=== PATIENT | male | born 1980 | race Caucasian/White ===

== ENCOUNTER 2024-08-22 14:17 | Observation (INO) | payer OTHER, SELFPAY ==
[2024-08-22] VITALS (11 sets, daily range): BP systolic 133–169; BP diastolic 89–108; BMI 26.4; BMI 25.1
[2024-08-22 12:07] LABS: Glucose - Point of Care 108 mg/dl (70-99)
[2024-08-22 12:10] LABS: % Basophils 0.6 % (0-2); % Eosinophils 1.8 % (0-6); % Immature Granulocytes 0.4 % (0-0.5); % Lymphocytes 27.7 % (20.5-51.1); % Monocytes 7.8 % (1.7-9.3); % Neutrophils 61.7 % (42.2-75.2); Absolute Eosinophils 0.1 10^3/uL (0-0.7); Absolute Lymphocytes 1.4 10^3/uL (1.2-3.4); Absolute Monocytes 0.4 10^3/uL (0.1-0.6); Absolute Neutrophils 3.1 10^3/uL (1.4-6.5); Hematocrit 42.9 % (39.0-52.0); Hemoglobin 14.8 g/dL (13.0-18.0); Mean Corp Hgb Conc. 34.5 g/dL (33.0-37.0); Mean Corpuscular Hgb 30.4 pg (27.0-31.0); Mean Corpuscular Volume 88.1 fL (80.0-94.0); Mean Platelet Volume 9.2 fL (7.4-10.4); Nucleated Red Blood Cells % 0 % (-); Platelet Count 141 10^3/uL (130-400); Red Blood Cell Count 4.87 10^6/uL (4.70-6.10); Red Cell Dist. Width 12.5 % (11.5-14.5)
--- NOTE | 2024-08-22 12:15 | CON.NEURO4 ---
Addendum entered and electronically signed by Bean Lopez MD 08/22/24 15:11:
Studies reviewed.
I have personally examined the patient. I reviewed and agree with the MARKETING COPYWRITER's Note.
My addenda:
Awake, alert, interactive. No acute distress.
Speech intact.
Follows 2-step requests w/o difficulty. No tremor.
Extra-ocular movements grossly intact.
Facial movements full and symmetric. Hearing intact to normal conversational volume.
Normal UE movements bilaterally.
Neck: full ROM.
Chest: no dyspnea
Heart: no JVD
Ext: (-) Clubbing, (-) Cyanosis, (-) Edema
IMPRESSIONS/RECOMMENDATIONS:
Abrupt onset of left hemibody sensory change concomitant chest pain
Differential diagnosis includes radiating pain from primary chest pain, as well as ischemic lesion into the right parietal lobe
Provide aspirin 81 mg and clopidogrel 75 mg without loading doses due to risk of ischemic lesion
Check MRI of brain to ensure no structural abnormality, consider repeated study with gadolinium
Check lipid profile, consider atorvastatin if LDL greater than 70
Consider cardiology consultation as the patient has been taking apixaban as needed according to an outside applications systems engineer
D/W patient
All questions answered.
Will continue to follow patient.
Original Note:
Documented by User: Claritza Starkey NP 08/22/24 14:39
Consultation - Neurology 4
-
CONSULTING PHYSICIAN: Bean Lopez MD
REFERRING PHYSICIAN: ER/Irving Moreno PA-C
DICTATED BY: JONATHAN Malagon
DATE/TIME OF REQUEST: 08/22/24
DATE/TIME OF CONSULTATION: 08/22/24
Reason for Consultation: Stroke Alert
History of Present Illness:
This is a 43-year-old right-handed male who has presented to the hospital with report of sudden onset chest discomfort, palpitations, left-sided sensation and weakness. Patient reports that he woke up in his usual state this morning. At
1030 he was at work when he suddenly developed left lateral chest discomfort, heart palpitations, left face followed by arm then leg decreased sensation, and then left arm and leg mild weakness with some LUE shakiness. EMS provided him with a dose
of aspirin en route. CT head and CTA head/neck were obtained on arrival and radiology is reading his CT head as a possible hyperintensity along the left insular cortex, ASPECT score 10. NIHSS is 1 for mild sensation change on the left side. His
left-sided weakness has resolved on arrival. He is not a candidate for TNK/IAT due to low NIHSS, no LVO. He denies any headache, dizziness, vision changes, speech/swallowing difficulty, and shortness of breath.
He reports having been diagnosed with paroxysmal Afib a couple of years ago. He does not have an ILR, but notes that he can feel when he is in Afib and has had several instances in the past 6 months. He is taking Eliquis PRN when he feels that he
is in Afib, his last dose was at least 3 weeks ago. He also notes that he has been seeing a neurologist for memory issues and was due to have an MRI brain and neuropsychological testing in the next several months; he cannot recall the name of his
Neurologist. He denies any history of migraines, stroke, or events like this in the past.
Past Medical History: Paroxysmal Afib (no ILR, take Eliquis when he feels that he is in Afib), HTN,
Surgical History: Sinus surgery, adenoidectomy
Family History: Unknown, adopted.
Social History: Couple of glasses of wine a few days per week. Rare cigar smoking. Denies illicit drug use.
Allergies: No known allergies
Home Medications: See below.
Review of Symptoms:
Patient denies any fever, headache, chest pain, shortness of breath, GI or symptoms.
�Per the HPI.�All systems are reviewed negative except above.
Physical Exam:
The patient is afebrile, abdomen is nondistended, breathing is unlabored, skin is warm and dry, no edema.
NIH Stroke Scale:
I performed the NIH stroke scale on the patient on 08/22/24 at 1245. The patient scored 1 points on the NIH stroke scale assessment, which were assigned as follows: See below.
Neurologic Examination:
The patient is awake, alert and oriented x 3. He is able to follow commands and answer questions appropriately. There is no aphasia or dysarthria. On cranial nerve assessment, pupils are 3 mm bilateral, round and reactive to light and
accommodation. Visual arechiga are full. Extraocular movements are intact. Facial sensations are intact and bilaterally symmetrical, there is no facial asymmetry. Hearing is intact bilaterally to normal conversation volume. Tongue palate and uvula are
midline. Sternocleidomastoid strengths are full bilaterally. Motor strengths are 5/5 bilateral upper and lower extremities on medical research Kotlik scale. There is no drift or involuntary movement noted. Babinski is absent bilaterally. Sensations
of touch are mildly decreased in the LUE and LLE. There was no extinction noted on double simultaneous stimulation. Coordination is intact by finger to nose bilaterally.
Lab Results: See below.
Neuro Imaging:
1. CT Head 08/22/24: Serpiginous hyperdensity along the left insular cortex which may represent acute thrombus. ASPECT score: 10.
2. CTA head/neck 08/22/24: No large vessel occlusions appreciated. No aneurysms or dissections.
Differentials for the patient's presentation include:
1. Small acute ischemic stroke possible given sudden onset of symptoms, lack of headache, and not consistently taking OAC.
2. Cardiac source of left-sided changes possible given chest pain although initial workup has been unrevealing for cardiac source.
3. HTN.
4. No history of migraines/aura.
Patient has the following risk factors for their symptoms: Afib (not consistent OAC), HTN
IV Tenecteplase/IAT candidacy: He is not a candidate for TNK/IAT due to low NIHSS, no LVO.
Recommendations:
-Provide clopidogrel 75mg x1 now.
-MRI brain without contrast pending. PRN Ativan on-call for MRI due to claustrophobia.
-Based on MRI results, based on MRI results, will decide about continuing DAPT vs OAC.
-Monitor on telemetry, TTE pending. Consider Cardiology consult.
-LDL goal will be <70 if MRI brain demonstrates a stroke. Lipid panel pending.
-Goal normoglycemia, hbA1c is pending.
-NIHSS and neurological checks per unit guidelines.
-Provide patient with a stroke education packet.
-PT/OT/ST evaluations.
-DVT prophylaxis.
-Will follow.
Discussed patient care with: Dr. Lopez, the patient
Vital Signs and Labs
-
Vital Signs and Labs:
Vital Signs
Temp Pulse Resp BP Pulse Ox
98.1 F 80 21 169/104 97
08/22/24 12:04 08/22/24 13:00 08/22/24 13:00 08/22/24 13:00 08/22/24 13:10
Lab Results
08/22/24 11:59
08/22/24 11:59
PT 12.7 Sec (11.4-14.6) 08/22/24 11:59
INR 0.90 08/22/24 11:59
APTT 23.2 Sec (23.4-35.0) L 08/22/24 11:59
Sodium 144 mmol/L (135-145) 08/22/24 11:59
Potassium 4.5 mmol/L (3.5-5.1) 08/22/24 11:59
BUN 16 mg/dl (9-20) 08/22/24 11:59
Glucose 107 mg/dl (70-99) H 08/22/24 11:59
Calcium 9.8 mg/dl (8.4-10.2) 08/22/24 11:59
Medications
-
Home Medications
�Medication �Instructions �Recorded
amlodipine 5 mg tablet 5 mg PO HS blood pressure 08/22/24
apixaban 5 mg tablet (Eliquis) 5 mg PO PRN PRN symptoms of AFib 08/22/24
metoprolol tartrate 25 mg tablet 25 mg PO PRN PRN symptoms of AFib 08/22/24
NIH Stroke Score
Subsequent NIH Scale
Date of Subsequent NIH Scale: 08/22/24
Time of Subsequent NIH Scale: 12:45
NIH Stroke Score
Level of Consciousness: 0 - Alert
LOC Questions: 0-Answers both correctly
LOC Commands: 0-Performs both correctly
Best Horizontal Gaze: 0-Normal
Visual Arechiga: 0=Normal, no visual loss
Facial Palsy: 0=Normal, symmetrical
Motor - Right Arm: 0=No drift 10 seconds
Motor - Left Arm: 0=No drift 10 seconds
Motor - Right Le-No drift 5 seconds
Motor - Left Le-No drift 5 seconds
Limb Ataxia: 0-Absent
Sensation: 1-Mild loss
Best Language: 0-No aphasia
Dysarthria: 0-Normal
Extinction and Inattention: 0-No abnormality
Total Score:: 1
Modified Elvira (mRS) Score
Modified Elvira Scale (mRS): No significant disability. Able to carry out usual activities.
Score: 1
Alteplase Contraindication
Inclusion and Exclusion criteria reviewed: Yes

Documented by User: Bean Lopez MD 08/22/24 15:02
NIH Stroke Score
NIH Stroke Score
Total Score:: 1
Modified Elvira (mRS) Score
Score: 1
--- NOTE | 2024-08-22 12:16 | ED.CVA ---
History of Present Illness
General
Chief Complaint: CVA/TIA Symptoms
Source: patient
Exam Limitations: none
Time Seen by Provider: 08/22/24 12:10
Nursing documentation reviewed up to this point in time: agreed with
Onset of Stroke Symptoms
Onset of symptoms known: Yes
Date of onset of symptoms: 08/22/24
Time of onset of symptoms: 10:30
Time pt last seen normal is known: No
History of Present Illness
History of Present Illness:
43-year-old male past ministry of paroxysmal A-fib takes anticoagulant as needed presenting to the emergency department 1-1/2 hours after abrupt onset of left-sided weakness to the left arm and progressing to the left leg within a few minutes also
at the left neck and face. This then started progressing into some weakness to the left side description of difficulty speaking no changes in vision no changes in coordination. Denies similar symptoms in the past. Had an episode en route to the
ER where he felt shaky and felt palpitations for a few minutes that is since resolved. The weakness has been improving over the last half hour or so, the paresthesias to the left side improving as well. Still present. Denies any chest pain
shortness of breath currently
Past History
Past History
ED Past Medical History: None and Other (adopted)
ED Past Surgical History: None
Social History
Tobacco: Non-smoker
Alcohol: Occasional
Drug: None
Personal:
Living: with family
Review of Systems
Review of Systems
Allergies reviewed?: Yes
All Other Systems: ROS reviewed and negative except as documented in HPI and ROS
Phy Exam
Physical Exam
Physical Exam:
GENERAL: Alert , in no apparent distress
EYE: pupils equal and reactive
NECK: Supple, no significant adenopathy.
ENT: o/p clr, mmm.
CARDIAC: Regular rate and rhythm .
LUNGS: Clear breath sounds bilaterally, no acute respiratory distress, no wheezes/rales/rhonchi
ABDOMEN: Soft, without focal tenderness, no r/g, no cvat
NEUROLOGICAL: Alert and oriented, decree sensation to the left arm and left leg compared to the subjectively on examination. No obvious motor deficit or strength deficit to the extremities bilaterally. Normal finger-nose no significant pronator
drift. Normal cranial nerve examination.
SKIN: Warm and dry, skin intact.
MUSCULOSKELETAL: No edema, well perfused.
PSYCH: Normal and appropriate interaction.
Course
Orders/Labs/Results
Orders:
Orders
08/22/24 11:56
Electrocardiogram (*1) Urgent
Reason for Study: Other
Other Reason for Exam: Possible Stroke
Bedside Glucose- Treatment ONCE
Cardiac Monitoring- Treatment ONCE
IV Insert/Care/Rem.- Treatment PRN
Vital Signs As Directed
Frequency: Other
Weight As Directed
Frequency: Once
Comment: ZERO STRETCHER SCALE FOR ACCURATE WEIGHT
O2 Therapy [RESP] Urgent
Titrate/Wean O2 to maintain O2 sat greater than (%): 93
Special Instructions: MAINTAIN CONTINUOUS O2 SATS > OR = 93%
08/22/24 11:57
EKG- Treatment ONCE
08/22/24 11:59
Complete Blood Count/With Diff Urgent
Comprehensive Metabolic Panel Urgent
PTT Urgent
Prothrombin Time Urgent
Troponin I Urgent
08/22/24 12:09
CT HEAD STROKE ALERT W/o Cont Stat
Comment:
Reason For Exam: stroke alert
08/22/24 12:12
CT HEAD/NECK ANG STROKE ALERT Urgent
Reason For Exam: left sided numb weak
Abnormal Lab Results
08/22/24 08/22/24
11:59 12:06
APTT 23.2 L Sec
(23.4-35.0)
Glucose 107 H mg/dl
(70-99)
ALT 71 H U/L
(0-50)
Total Protein 8.5 H g/dl
(6.3-8.2)
Albumin 5.5 H g/dl
(3.5-5.0)
POC Glucose 108 H mg/dl
(70-99)
08/22/24 11:59
08/22/24 11:59
Vital Signs
Initial and Last Documented VS:
Initial Vital Signs
BP
153/100
08/22/24 12:00
Last Documented Vital Signs
Temp Pulse Resp BP Pulse Ox
98.1 F 80 21 169/104 97
08/22/24 12:04 08/22/24 13:00 08/22/24 13:00 08/22/24 13:00 08/22/24 13:10
MDM/Problems Addressed
MDM/Problems Addressed:
43-year-old male presenting to the emergency department today with concerns of decree sensation to the left side mainly to the left arm slightly to the left leg. Of time to the left face and left neck that is since resolved. Also had some weakness
to the left side as well that is since resolved. Arrival here blood pressure slightly elevated otherwise vital signs are normal. Patient does have reproducible decree sensation to the left side subjectively no objective strength deficit. He
claims that he has had some ongoing left-sided chest discomfort. Did have an aspirin en route. Initial EKG without signs of ischemia and initial troponin negative. Patient here had CT angiogram as well as CT without emergent findings. Symptoms
gradually improving to his left side. Patient was seen by neurology that recommended getting an MRI. Patient will be admitted for further testing.
*Critical Care Note
Total Time (30-74mins, 75-104mins- exclusive of procedures): Not Applicable
ED Attending Note
-
Portions of this chart may have been created with voice recognition software.� Occasional wrong word or��sound alike� substitutions may have occurred due to the inherent limitations of voice recognition software.
Discharge Plan
Departure
Patient Disposition: Admit
Date of Disposition: 08/22/24
Time of Disposition: 13:19
Admit to: Telemetry
Admit to doctor: Nat
Presentation/result/management discussed w/ accepting MD/DO: Hospitalist
Patient with high blood pressure during this ER visit?: No
Condition: Good
Covid-19: Not Applicable
Discharge Problem:
Paresthesia of left arm, Chest pain
Prescriptions:
No Action
amlodipine 5 mg tablet
5 mg PO HS
metoprolol tartrate 25 mg tablet
25 mg PO PRN PRN (Reason: symptoms of AFib)
Eliquis 5 mg tablet
5 mg PO PRN PRN (Reason: symptoms of AFib)
Referrals:
Nathaniel Eid MD [Family Provider] -
Interventions
Interventions:
*Risk Screen - Suicide Last Done: 08/22/24 13:16
*General Assessment Last Done: 08/22/24 12:04
*Neglect/Abuse Screening Last Done: 08/22/24 13:16
ED- Fall Risk Assessment Last Done: 08/22/24 13:10
*ED COVID-19 Vaccine History Last Done: 08/22/24 13:10
ED- Pulmonary Assessment Last Done: 08/22/24 13:10
ED- Neurological Assessment Last Done: 08/22/24 12:26
ED- Cardiac Assessment Last Done: 08/22/24 12:26
ED Swallowing Screen Last Done: 08/22/24 13:10
Discharge Date and Time
Print Language: MEXICAN
[2024-08-22 12:23] LABS: PT 12.7 Sec (11.4-14.6)
[2024-08-22 12:25] LABS: ALT (SGPT) 71 U/L (0-50); AST (SGOT) 42 U/L (17-59); Albumin 5.5 g/dl (3.5-5.0); Alkaline Phosphatase 57 U/L (38-126); Blood Urea Nitrogen 16 mg/dl (9-20); Calcium 9.8 mg/dl (8.4-10.2); Carbon Dioxide 27 mmol/L (22-30); Chloride 103 mmol/L (98-107); Estimated Creatinine Clearance > 125 ml/min; Glucose 107 mg/dl (70-99); Potassium 4.5 mmol/L (3.5-5.1); Sodium 144 mmol/L (135-145); Total Bilirubin 0.5 mg/dl (0.2-1.3); Total Protein 8.5 g/dl (6.3-8.2); eGFR > 60.00
--- NOTE | 2024-08-22 12:29 | ED TECH ---
A STROKE ALERT was called#[id number]# @12:07 PM Per .Cat Scan Notified.
[2024-08-22 12:35] LABS: Troponin I < 0.012 ng/ml
[2024-08-22 12:39] LABS: APTT 23.2 Sec (23.4-35.0)
--- NOTE | 2024-08-22 13:18 | HPS.HSE ---
Family Physician
-
Family Physician: Nathaniel Eid
Chief Complaint
-
left sided chest pain
left sided numbness and weakness
History of Present Illness
43-year-old male past ministry of paroxysmal A-fib takes anticoagulant, HTN as needed presenting to the emergency department with two weeks of intermitted non radiating, non exertional left sided chest pain. today he noticed left arm numbness
radiating to his leg then to his face. still with left arm numbness and chest pain. denied SIMEON, dizzy or blurry vision. stated palpitation and shakiness Enroute to the hospital . patient received a dose of aspirin. denied fever, chills, runny nose
congestion and cough. denied abdominal pain,n,v,d. denied dysuria or hematuria.
CT with Serpiginous hyperdensity along the left insular cortex which may represent acute thrombus.
admitting for further management.
Medical History
Past Medical History
Past Medical History: Reports Other
Additional Past Medical History:
htn
pAF
Past Surgical History: Reports Other
Additional Past Surgical History:
sinus surgery
adenoidectomy
Social History
Tobacco: Non-smoker
Alcohol: Occasional
Drug: None
Personal:
Living: With Family
Employment: Employed
Family History
Family History: Not pertinent
Allergies / Home Medications
Allergies reflects when Allergies were last updated in [facility].
Home Medications with original date entered in [facility]
Allergy/Medication List:
Allergies
Allergy/AdvReac Type Severity Reaction Status Date / Time
No Known Allergies Allergy Verified 08/04/22 10:19
Home Medications
amlodipine 5 mg tablet 5 mg PO HS blood pressure 08/22/24
apixaban 5 mg tablet (Eliquis) 5 mg PO PRN PRN symptoms of AFib 08/22/24
metoprolol tartrate 25 mg tablet 25 mg PO PRN PRN symptoms of AFib 08/22/24
Review of Systems
-
Constitutional: Reports No Symptoms
EENT: Reports No Symptoms
Respiratory: Reports No Symptoms
Cardiac: Reports Chest Pain and Palpitations
Abdomen/GI: Reports No Symptoms
: Reports No Symptoms
Musculoskeletal: Reports No Symptoms
Skin: Reports No Symptoms
Neurological: Reports Weakness and Numbness
Endocrine: Reports No Symptoms
Hematologic/Lymphatic: Reports No Symptoms
Psych: Reports No Symptoms
Physical Exam
Vital Signs
Vital Signs
Temp Pulse Resp BP Pulse Ox
98.1 F 80 21 169/104 97
08/22/24 12:04 08/22/24 13:00 08/22/24 13:00 08/22/24 13:00 08/22/24 13:10
Physical Exam
General: Well Developed, Well Nourished and No Apparent Distress
HEENT: NormoCephalic, Moist mucous membranes and Atraumatic
Respiratory: Clear
Cardiac: S1/S2 and Regular Rhythm; No Murmur or Rub
GI: Soft, Non Tender, Non Distended and Normal Bowel Sounds; No Organomegaly
Rectal: Deferred by Provider
Musculoskeletal: No Clubbing, No Cyanosis and No Edema
Skin: No Rash
Neuro: AO x 3 and Nonfocal/grossly intact
Psych: Calm
Laboratory Results
-
08/22/24 11:59
08/22/24 11:59
Laboratory Results
PT 12.7 Sec (11.4-14.6) 08/22/24 11:59
INR 0.90 08/22/24 11:59
APTT 23.2 Sec (23.4-35.0) L 08/22/24 11:59
Total Bilirubin 0.5 mg/dl (0.2-1.3) 08/22/24 11:59
AST 42 U/L (17-59) 08/22/24 11:59
ALT 71 U/L (0-50) H 08/22/24 11:59
Alkaline Phosphatase 57 U/L (38-126) 08/22/24 11:59
Troponin I < 0.012 ng/ml 08/22/24 11:59
Data Reviewed
-
CT Scan: Report Reviewed by me
Lab Data: Labs Reviewed by me
Impression/Plan
-
#left sided numbness/weakness r/o acute CVA
-CTA negative
-CT Serpiginous hyperdensity along the left insular cortex which may represent acute thrombus.
-obtain MRI
-aspirin and statin continued
-obtain A!c, lipid profile
-neurology consulted
#left sided chest pain unclear cause
-trop negative
-continue to trend trop
-Tylenol prn for pain
-ctm
#PAF
-EKG with NSR
-eliquis and metoprolol continued
#hypertension urgency
-BP elevated in ER
-Norvasc continued
#DVT prophylaxis
-eliquis
#CODE status
-full code
--- NOTE | 2024-08-22 14:24 | W.PN.UPDATE ---
Update Note
Progress Note Update
This note serves as an addendum to the H&P by breaker boss ADAM Shena BENAVIDES
HPI
43M HX paroxysmal A-fib takes anticoagulant, HTN seeen at ER
- reports two weeks of intermitted non radiating, non exertional left sided chest pain
- today he noticed left arm numbness radiating to his leg then to his face. still with left arm numbness and chest pain. - received dose of ASA
- stated palpitation and shakiness Enroute to the hospital
HCT Serpiginous hyperdensity along the left insular cortex which may represent acute thrombus but NEG CTA H & N
ROS:
denied SIMEON, dizzy or blurry vision
denied fever, chills, runny nose congestion and cough. denied abdominal pain,n,v,d. denied dysuria or hematuria.
Reviewed VS:
Vital Signs
Temp Pulse Resp BP Pulse Ox
98.1 F 80 21 169/104 97
08/22/24 12:04 08/22/24 13:00 08/22/24 13:00 08/22/24 13:00 08/22/24 13:10
PE:
GEN: No Apparent Distress
HEENT: Moist mucous membranes and Atraumatic
Respiratory: CTA
Cardiac: S1/S2 and Regular Rhythm
GI: Soft, Non Tender, Non Distended and Normal Bowel Sounds
Rectal: Deferred by Provider
Musculoskeletal: No Edema
Skin: No Rash
Neuro: AO x 3 and Nonfocal/grossly intact
Psych: Calm
Abnormal Lab Results
08/22/24 08/22/24
11:59 12:06
APTT 23.2 L
Glucose 107 H
ALT 71 H
Total Protein 8.5 H
Albumin 5.5 H
POC Glucose 108 H
NEG H& N
HCT: Serpiginous hyperdensity along the left insular cortex which may represent acute thrombus.
ASSESSMENT & PLAN
Acute left face,, Lt UEx, Lt Paloma paraesthesia: NIH was Zero upon arrival
- NEG CTA H & N
- HCT : Serpiginous hyperdensity along the left insular cortex which may represent acute thrombus.
- Initiated ASA and Statin upon admission
- on GRAPHOTYPE OPERATOR Eliquis for Prx AF
- obtain A!c, lipid profile
- ECHO
- Brain MRI
- Neuro consulted
Subacute eft sided chest pain unclear cause
Known to [facility]
- NEG TPN - trending TPNI
- If TPN becomes POS to consider CBC Card
- Tylenol prn for pain
in NSR
HX PAP
- c/w GRAPHOTYPE OPERATOR Eliquis and metoprolol continued
HTN Urgency
- Norvasc continued
DVT Px: Eliquis
Full code
Obs TLM
--- NOTE | 2024-08-22 14:50 | EDRN ---
NIHS scale reviewed with RYLAN Gallo on the 3rd floor. Patient continues with numbness in his left arm only. Left leg numbness has resolved. Continues with c/o left sided chest pain.
[2024-08-22] MEDS: PLAVIX 75 MG PO (15:18)
--- NOTE | 2024-08-22 15:39 | PTOTSP ---
Dysphagia Evaluation
Oral and pharyngeal swallowing suspected to be grossly WFL based on clinical bedside swallowing evaluation.
Recommend:
1. Regular, Thin Liquids
2. Medications - as best tolerated
3. No further dysphagia therapy warranted
No obvious aphasia or dysarthria observed. Per chart review, patient with memory concerns prior to admission and scheduled for outpatient neuropsychology assessment. Will assess speech/language/cognitive linguistic skills pending results of MRI of
Brain.
[2024-08-22 15:45] LABS: Erythrocyte Sed Rate 11 mm/hour (0-20)
[2024-08-22 16:03] LABS: C-Reactive Protein < 5.00 mg/L (0.0-10.00)
[2024-08-22] MEDS: ATIVAN 1 MG PO (16:10)
[2024-08-22 16:35] LABS: TSH Reflex To Free T4 0.86 uIU/ml (0.47-4.68)
[2024-08-22] MEDS: LIPITOR 40 MG PO (17:03)
[2024-08-22 17:11] LABS: Folate > 20.0 ng/ml (2.76-20); Vitamin B12 665 pg/ml (239-931)
[2024-08-22 17:42] LABS: Troponin I < 0.012 ng/ml
--- NOTE | 2024-08-22 18:29 | W.PN.UPDATE ---
Update Note
Progress Note Update
patient was noted to have unwitnessed GI bleed. he is on Eliquis also on asa and Plavix. hold Eliquis, asa, and Plavix. trend hgb. IV PPI. GI consulted
[2024-08-22] MEDS: NSS (PRESERVATIVE FREE) 10 ML IV (18:43)
[2024-08-22] MEDS: PROTONIX IV 40 MG IV (18:44)
[2024-08-22 19:09] LABS: Hemoglobin 13.8 g/dL (13.0-18.0)
[2024-08-22] MEDS: TYLENOL 650 MG PO (20:23)
[2024-08-22 20:53] LABS: Troponin I < 0.012 ng/ml
[2024-08-22] MEDS: NORVASC 5 MG PO (21:00)
[2024-08-22 23:54] LABS: Troponin I < 0.012 ng/ml
[2024-08-23 03:15] VITALS: BP 128/89
[2024-08-23 06:00] VITALS: BMI 25.1
[2024-08-23 06:30] LABS: Hematocrit 38.7 % (39.0-52.0); Hemoglobin 13.5 g/dL (13.0-18.0); Mean Corp Hgb Conc. 34.9 g/dL (33.0-37.0); Mean Corpuscular Hgb 30.2 pg (27.0-31.0); Mean Corpuscular Volume 86.6 fL (80.0-94.0); Mean Platelet Volume 9.3 fL (7.4-10.4); Platelet Count 140 10^3/uL (130-400); Red Blood Cell Count 4.47 10^6/uL (4.70-6.10); Red Cell Dist. Width 12.2 % (11.5-14.5); White Blood Cell Count 5.4 10^3/uL (4.8-10.8)
[2024-08-23 07:02] LABS: Blood Urea Nitrogen 20 mg/dl (9-20); Calcium 9.1 mg/dl (8.4-10.2); Carbon Dioxide 24 mmol/L (22-30); Chloride 104 mmol/L (98-107); Estimated Creatinine Clearance 124 ml/min; Glucose 107 mg/dl (70-99); HDL Cholesterol 37 mg/dl; LDL Cholesterol, Calculated 125 mg/dl; Potassium 3.9 mmol/L (3.5-5.1); Sodium 141 mmol/L (135-145); Total Cholesterol 202 mg/dl (50-199); Triglyceride 204 mg/dl (10-149); Very Low Density Lipoprotein 40 mg/dl (0-30); eGFR > 60.00
--- NOTE | 2024-08-23 07:12 | CON.GI ---
Addendum entered and electronically signed by Aracely Nelson DO 08/23/24 11:19:
I saw and examined the patient.
The FOUR SLIDE MACHINE SETTER or PA's note was reviewed and I agree with the note.
Comment:
Briefly, 43 y.o. male with pmhx pAF on prn AC and BB and HTN admitted with left arm numbness and chest discomfort with reported 1 episode of unwitnessed bright red blood per rectum. Hgb stable. Has never had an episode like this in the past. He is
adopted, does not know family history. No change in bowels or unintentional weight loss. He does admit to some dysphagia.
Rectal exam with heme neg, brown stool. Suspect bleeding episode was hemorrhoidal in nature.
Recommend outpatient follow-up with GI in our office at which point we can address both is dysphagia and this episode of bleeding. c/w PPI. GI will sign off, please call with questions.
Original Note:
Consultation
-
Date/Time Consultation Requested: 08/22/24 1830
Date/Time Consultation Performed: 08/23/24 0715
Requesting Provider: JONATHAN Tamayo
Performing Provider: JONATHAN Ponce Jen Schwartz, DO
Reason for Consultation: GI bleed
Medical History
Chief Complaint / HPI
Chief Complaint: GI bleed
History of Present Illness:
Pt is a 43yo presents with hx PAF on anticoagulation PRN with symptoms , HTN presents to ER 08/22 with chest pain along with recent numbness radiating to leg and face. Imaging on admission with HCT noted with serpiginous hypodensity along left
insular cortex may be acute thrombus. Follow up MRI neg. EKG with normal rhythm borderline left atrial enlargement and troponin neg. Follow up echo with normal LV size and function EF 55 %. Pt admits after admission he passed red blood with
noted formed stool and red blood around stool. Pt denies hx bleeding in past. He also admits to feeling of dysphagia in mid upper esophagus with ground meat occasionally over last year. On admission labs with normal hbg, LFT's normal with minimal
elevated ALT. No hx EGD or colonoscopy in past.
At this time still with some chest pain and numbness. He otherwise denies odynophagia, GERD, nausea, vomiting, abdominal pain, diarrhea, constipation or black stools. No NSAID use.
Past Medical History
Past Medical History: Arrhythmias (PAF) and HTN
Past Surgical History: Other (sinus surgery, adenoidectomy)
Social History
Tobacco: Non-Smoker
Alcohol: Occasional ( 3 glasses of wine 3 times per week)
Drug: None
Personal:
Living: With Family
Employment: Employed
Family History
Family History: Adopted
Allergies / Home Medications
Allergy/AdvReac Type Severity Reaction Status Date / Time
No Known Allergies Allergy Verified 08/04/22 10:19
�Medication �Instructions �Recorded
amlodipine 5 mg tablet 5 mg PO HS blood pressure 08/22/24
apixaban 5 mg tablet (Eliquis) 5 mg PO PRN PRN symptoms of AFib 08/22/24
metoprolol tartrate 25 mg tablet 25 mg PO PRN PRN symptoms of AFib 08/22/24
Review of Systems
-
History Source: Patient
Constitutional: Reports Weight Loss ( 5 lbs )
EENT: Reports No Symptoms
Respiratory: Reports Trouble Breathing
Cardiac: Reports Chest Pain
Abdomen/GI: Reports Bloody Stools and Other (dysphagia )
: Reports No Symptoms
Musculoskeletal: Reports No Symptoms
Skin: Reports No Symptoms
Neurological: Reports Weakness
Endocrine: Reports No Symptoms
Hematologic/Lymphatic: Reports Bleeding
Vital Signs
Temp Pulse Resp BP Pulse Ox
98.1 F 72 18 128/89 98
08/23/24 03:15 08/23/24 03:15 08/23/24 03:15 08/23/24 03:15 08/23/24 03:15
Physical Exam
Exam
General: Well Developed, Well Nourished and No Apparent Distress
HEENT: Normocephalic and Anicteric
Respiratory: Clear
Cardiac: Regular Rhythm
GI: Soft, Non Tender and Non Distended
Rectal: Brown, Hem Negative and Hemorrhoids
Musculoskeletal: No Clubbing and No Cyanosis
Skin: Warm and Dry
Neuro: Awake, Alert and AO x 3
Psych: Calm
Results
WBC 5.4 10^3/uL (4.8-10.8) 08/23/24 05:20
Hgb Cancelled 08/23/24 06:26
Hct 38.7 % (39.0-52.0) L 08/23/24 05:20
MCV 86.6 fL (80.0-94.0) 08/23/24 05:20
Plt Count 140 10^3/uL (130-400) 08/23/24 05:20
Absolute Neuts (auto) 3.1 10^3/uL (1.4-6.5) 08/22/24 11:59
PT 12.7 Sec (11.4-14.6) 08/22/24 11:59
INR 0.90 08/22/24 11:59
APTT 23.2 Sec (23.4-35.0) L 08/22/24 11:59
Sodium 141 mmol/L (135-145) 08/23/24 05:20
Potassium 3.9 mmol/L (3.5-5.1) 08/23/24 05:20
Chloride 104 mmol/L (98-107) 08/23/24 05:20
Carbon Dioxide 24 mmol/L (22-30) 08/23/24 05:20
BUN 20 mg/dl (9-20) 08/23/24 05:20
Creatinine 0.9 mg/dL (0.7-1.3) 08/23/24 05:20
Calcium 9.1 mg/dl (8.4-10.2) 08/23/24 05:20
Total Bilirubin 0.5 mg/dl (0.2-1.3) 08/22/24 11:59
AST 42 U/L (17-59) 08/22/24 11:59
ALT 71 U/L (0-50) H 08/22/24 11:59
Alkaline Phosphatase 57 U/L (38-126) 08/22/24 11:59
Diagnostic Image Results:
08/22/24 CT HEAD STROKE ALERT W/o Cont
Serpiginous hyperdensity along the left insular cortex which may represent acute thrombus.
08/22/24 CT HEAD/NECK ANG STROKE ALERT
1. No large vessel occlusions appreciated. No aneurysms or dissections.
2. Additional findings above.
08/22/24- MR brain
No MRI evidence for an acute infarct.
Prior GI Procedures:
EGD: none
Colonoscopy: none
Assessment / Plan
-
Pt is a 43yo presents with hx PAF on anticoagulation PRN with symptoms , HTN presents to ER 08/22 with chest pain along with recent numbness radiating to leg and face. Imaging on admission with HCT noted with serpiginous hypodensity along left
insular cortex may be acute thrombus. Follow up MRI neg. EKG with normal rhythm borderline left atrial enlargement and troponin neg. Follow up echo with normal LV size and function EF 55 %. Pt admits after admission he passed red blood with
noted formed stool and red blood around stool. Pt denies hx bleeding in past. He also admits to feeling of dysphagia in mid upper esophagus with ground meat occasionally over last year. On admission labs with normal hbg, LFT's normal with minimal
elevated ALT. No hx EGD or colonoscopy in past.
-rectal bleeding
-dysphagia
-chest pain
-numbness
-CT serpiginous hypodensity along left insular cortex may be acute thrombus
-minimal ALT elevation
-ETOH use (3 glasses wine 3 days per week)
other med problems:
-afib with PRN Eliquis use
-HTN
-hx adenoid resection
PLAN:
etiology of Bleeding related to hemorrhoids with normal hbg and brown heme neg stool on rectal exam vs other
dysphagia may be related to schatzki's ring, dysmotility vs other
pt current admit to chest pain and numbness
discussed OP follow up to review for EGD vs UGI/colon when improved from chest pain and numbness issues to rule out any other source for bleeding and work up new dysphagia
discussed care with hemorrhoids ( no prolonged sitting on toilet, add fiber to diet, sitz bath, hemorrhoids cream PRN)
trend hbg and stool record
Eliquis and ASA on hold-- ok to resume if needed
limit ETOH use
cont Protonix daily with dysphagia
ok for diet from GI standpoint
-
-
Thank you for consultation and allowing me to participate in the patient's care. Please call the investor relations director GI physician during the after hours with any questions or concerns.
[2024-08-23 07:33] VITALS: BP 137/94
[2024-08-23] MEDS: PROTONIX IV 40 MG IV (08:06)
[2024-08-23] MEDS: NSS (PRESERVATIVE FREE) 10 ML IV (08:07)
--- NOTE | 2024-08-23 09:11 | W.PN.NEURO.1 ---
Today's Communication / Plan
-
Consider cardiology evaluation due to atypical chest pain
No indication from neurological perspective for the use of antiplatelet agents at this time
Consideration for anxiolytics must be given based on next objective results
Neuro Assessment/Plan
Assessment
Abrupt onset of left hemibody sensory change concomitant chest pain
Differential diagnosis includes radiating pain from primary chest pain
There is no evidence of an ischemic lesion by MRI of brain
Plan
Consider cardiology evaluation due to atypical chest pain
No indication from neurological perspective for the use of antiplatelet agents at this time
Consideration for anxiolytics must be given based on next objective results
We will follow as needed
Subjective/Objective
Subjective Data
Date of Service: August 23, 2024
Numbness and tingling resolved ~ 2 hours, although continued chest discomfort.
Objective Data
Vital Signs
Temp Pulse Resp BP Pulse Ox
36.7 C 78 17 137/94 98
08/23/24 07:33 08/23/24 07:33 08/23/24 07:33 08/23/24 07:33 08/23/24 07:33
Lab Results
08/23/24 06:26
08/23/24 05:20
PT 12.7 Sec (11.4-14.6) 08/22/24 11:59
INR 0.90 08/22/24 11:59
APTT 23.2 Sec (23.4-35.0) L 08/22/24 11:59
Sodium 141 mmol/L (135-145) 08/23/24 05:20
Potassium 3.9 mmol/L (3.5-5.1) 08/23/24 05:20
BUN 20 mg/dl (9-20) 08/23/24 05:20
Glucose 107 mg/dl (70-99) H 08/23/24 05:20
Calcium 9.1 mg/dl (8.4-10.2) 08/23/24 05:20
LDL Cholesterol, Calc 125 mg/dl 08/23/24 05:20
Vitamin B12 665 pg/ml (558-791) 08/22/24 11:59
Patient Allergies
No Known Allergies Allergy (Verified 08/04/22 10:19)
Review of Systems
-
History Source: Patient
All other systems: Reviewed and negative
Physical Exam
-
General: No Apparent Distress and Appears Stated Age
Eyes: Round OU, Silver Firs Conjunctivae and No Ptosis
HEENT: Anicteric and Moist Mucous Membranes
Neck: Full Range of Motion
Respiratory: No Dyspnea
Cardiac: No JVD
GI: Non-distended
Skin: Unremarkable
Extremities: No Clubbing, No Cyanosis and No Edema
Psych: Intact Judgement/Insight
Extended Neurological Exam
Mood & Affect: Mood Unremarkable and Affect Unremarkable
Attention Span & Concentration: Awake, Alert, Interactive and No Difficulty with 2 Step Request
Memory: Unremarkable
Tremor: Hand Tremor Absent and Head Tremor Absent
Speech: Quality Unremarkable and Quantity Unremarkable
Cranial Nerve II: Left Eye: Pupillary Size Unremarkable and Visual Arechiga Grossly Intact
Cranial Nerve II: Right Eye: Pupillary Size Unremarkable and Visual Arechiga Grossly Intact
Cranial Nerves III, IV, : Extraocular Movement: Grossly Intact
Cranial Nerve VII: Facial Symmetry: Normal Facial Symmetry
Cranial Nerve VIII: Hearing: Unremarkable Hearing to Normal Conversational Volume
Cranial Nerve XI: Shoulder Shrug: Unremarkable
Muscle Strength, Overall: Spontaneously Moves
Muscle Bulk & Tone: Bulk Unremarkable and Tone Unremarkable
Touch Sensation: Unremarkable
Coordination: Reaches for Objects without Difficulty
Data Reviewed
-
MRI Head: Report Reviewed and Image Reviewed
Labs: Report Reviewed
Reviewed with: Physician, Patient and Family
Old Records: Summarized
--- NOTE | 2024-08-23 09:19 | CON.CAR ---
Addendum entered and electronically signed by Warner Acevedo MD 08/23/24 13:03:
I saw and examined the patient.
The HIGH SCHOOL ENGLISH TEACHER's note was reviewed and I agree with the note.
Comment: 43-year-old male (known to his primary field inspector, Dr. João Barbosa at [facility]) with hypertension and paroxysmal atrial fibrillation presented to the emergency department with left-sided chest pain. His story is unclear and it is not 100%
clear that he has a cardiac etiology for his symptoms. However, he does have some symptoms that go along with pericarditis and we will treat as such. Additionally, some of these symptoms could be explained by costochondritis?
- Colchicine 3 months
- Ibuprofen taper as outlined with PPI for gi protection
- follow up with outpatient field inspector
- switch amlodipine to nifedipine
Original Note:
Consultation
Consultation Request
Date/Time Consultation Requested: 08/23/2024 09:15
Date/Time Consultation Performed: 08/23/2024 09:20
Requesting Provider: Musa Chavez MD
Performing Provider: JONATHAN Reza for Dr. Corbett
Reason for Consultation: Chest pain, Eliquis recommendation
Medical History
-
Chief Complaint: Chest pain
History of Present Illness:
Regino Collins is a 43-year-old male (known to his primary field inspector, Dr. João Barbosa at [facility]) with hypertension and paroxysmal atrial fibrillation presented to the emergency department with left-sided chest pain. He called his field inspector and
he was told to have someone drive him to the emergency department. While en route, he had left sided numbness and weakness. His left-sided chest pain went into his neck. He reports his left arm started shaking. He then had the sudden onset of
palpitations. He then arrived via EMS. He was evaluated by neurology. MRI unremarkable. His chest pain has been constant and nonexertional for more than 14 days. He is still having chest pain at the present moment. It does not get worse with
exertional activities. It does get worse with deep breath. It does not change with changes in position.
Past Medical History
Past Medical History: Arrhythmias (Paroxysmal atrial fibrillation) and HTN
Past Surgical History: Other (Adenoidectomy, sinus surgery)
Social History
Alcohol: Occasional
Drug: None
Employment: Employed
Family History
Family History: Adopted
Allergies / Home Medications
Allergy/AdvReac Type Severity Reaction Status Date / Time
No Known Allergies Allergy Verified 08/04/22 10:19
�Medication �Instructions �Recorded �Confirmed �Type
amlodipine 5 mg tablet 5 mg PO HS blood pressure 08/22/24 08/22/24 History
apixaban 5 mg tablet (Eliquis) 5 mg PO PRN PRN symptoms of AFib 08/22/24 08/22/24 History
metoprolol tartrate 25 mg tablet 25 mg PO PRN PRN symptoms of AFib 08/22/24 08/22/24 History
Review of Systems
-
History Source: Patient
All other systems: Negative unless noted
Constitutional: Fatigue
EENT: No Symptoms
Respiratory: No Symptoms
Cardiac: Chest Pain
Abdomen/GI: No Symptoms
: No Symptoms
Musculoskeletal: No Symptoms
Skin: No Symptoms
Neurological: No Symptoms
Endocrine: No Symptoms
Hematologic/Lymphatic: No Symptoms
Physical Exam
Vital Signs
Temp Pulse Resp BP Pulse Ox
98.1 F 78 17 137/94 98
08/23/24 07:33 08/23/24 07:33 08/23/24 07:33 08/23/24 07:33 08/23/24 07:33
Lab Results
08/23/24 06:26
08/23/24 05:20
Troponin I < 0.012 ng/ml 08/22/24 23:24
Physical Exam
General: Well Developed, Well Nourished, No Apparent Distress and Comfortable
HEENT: Normocephalic, Anicteric and Moist Mucous Membranes
Respiratory: Clear and Non Labored Respirations
Cardiac: S1/S2 and Regular Rhythm; Negative Peripheral Edema
Breast: Deferred by me
GI: Soft, Non Tender, Non Distended and Normal Bowel Sounds
Rectal: Deferred by Provider
Genito-urinary: No Costovertebral Tender
Musculoskeletal: No Clubbing, No Cyanosis and No Edema
Skin: Warm and Dry
Neuro: AO x 3
Hematologic/Lymphatic: No Lymphadenopathy
Psych: Calm
Impression / Plan
-
BACKGROUND: 43M with hypertension and paroxysmal atrial fibrillation presented to the emergency department with left-sided chest pain. He had associated left arm numbness that radiated to his legs and face.
Primary field inspector: Dr. João Barbosa ([facility])
IMPRESSION/PLAN:
Chest pain
-Worse with inspiration, no change with exertion, ongoing for more than 14 days
-Troponin less than 0.012 x 2
-EKG stable
-No acute findings on echocardiogram
-Differential diagnosis includes pericarditis, colchicine 0.6 mg twice daily and ibuprofen taper
Left-sided numbness/weakness
-MRI stable, neurology following
Paroxysmal atrial fibrillation
-Stable in sinus rhythm
-Oral Anticoagulation: No standing apixban
-[id number]: score 1 (<del>Heart</del> <del>failure</del>, HTN, <del>age</del> <del>75</del> <del>or</del> <del>more,</del> <del>Diabetes</del> <del>Mellitus,</del> <del>prior</del> <del>Stroke/TIA,</del> <del>Vascular</del> <del>disease,</del>
<del>age</del> <del>65-74,</del> <del>female</del> <del>gender</del>)
Hypertension, above goal but stable, can consider transition to nifedipine
Dyslipidemia, ASCVD risk is low (2.9%) with data from this morning
SUBJECTIVE:
Constant chest pain. Unchanged for more than 2 weeks.
DATA:
Transthoracic echocardiogram, 08/22/2024:
Normal left ventricular chamber size with mild concentric remodeling and normal
left ventricular systolic function. Left ventricular ejection fraction is 55%.
Normal regional wall motion. Normal diastolic function.
Normal right ventricular size and function.
Normal atria.
No significant valve abnormalities.
No evidence of pulmonary hypertension.
Data Reviewed
-
EKG: Report Reviewed by me (Sinus rhythm)
Medical Tests (Nuc Med, Echo etc): Report Reviewed by me (Echocardiogram as above)
Labs: Labs Reviewed by me
--- NOTE | 2024-08-23 09:30 | W.PN.HOSP.TC ---
Addendum entered and electronically signed by Chandu Zapata MD 08/23/24 14:45:
seen and examined by me independently in collaboration with the biomedical engineering technician Musa.
Lab data and imaging data reviewed.
Addendum as below :
Presents with 2 weeks of left-sided chest discomfort. Present every day. But it all came on its head yesterday with some radiation to left arm left side of the neck and the face and left leg. No limb weakness per se. No changes with position or
with food. He had some associated palpitation and feeling anxious.
He is known to have atrial fibrillation in the past and he thinks that in the last 3 months he had couple of breakthroughs just based on symptoms of palpitations. He sees a local firestop/containment worker who put him on metoprolol and also on Eliquis which he
claims to take it as needed basis when he gets palpitations. No prior history of stroke. Longstanding history of hypertension.
He is in sinus rhythm with no hall monitor events of atrial fibrillation. Continues beta-haley. Unclear Indicaition of Eliquis with [id number] score of 1.
No evidence of [place] based on troponins. EKG showed no acute ST-T changes.
No costochondral junction pain but he does have some tenderness more in the midclavicular to anterior axillaryn in mid thoracic area.
Appreciate cardiology input and he cannot rule out pericarditis. The recommended colchicine and ibuprofen taper with PPI coverage.
Patient denies any recent viral infection symptoms.
The patient was also with neurology and had a negative workup for stroke. MRI of the brain was negative. No further recommendations from neurology.
Will discharge patient home with above cardiology plan and follow-up with outpatient cardiology.
Total time of dc 32 min
Original Note:
Today's Communication/Plan
-
* Continue apixaban.
* Discharge today.
Assessment / Plan
Assessment / Plan
Assessment
Regino Ohara, age 43, developed left-sided chest pain which began radiating to the left upper extremity. Then started radiating up to his face and then to lower extremity. He was being driven to the hospital but had to pull-over due to new-onset
palpitations and tremors. He was then transported to the hospital by EMS. Of note, he has paroxysmal atrial fibrillation and has been taking apixaban 'as needed' while he is in atrial fibrillation. According to the patient, this was initiated to
help the patient calm his anxiety regarding CVAs and in turn hopefully help him convert back to sinus rhythm quicker. Last atrial fibrillation episode was 3 weeks ago, which is when he last took apixaban.
Impression and plan
Atypical chest pain
- Not exacerbated or alleviated by movement or physical activities.
- No focal tenderness or pain with movement to suggest musculoskeletal pain.
- Echocardiogram, electrocardiogram, telemetry tracings, troponin *2, neuroimaging and blood work unremarkable for any acute or chronic pathologies.
- Evaluated by neurology and cardiology.
- At this point, there is no clear etiology for his symptoms which have essentially resolved by this point.
- Possible that this was a panic attack episode, however, cannot rule out arrhythmias or other cardiac causes.
- Will empirically treat for pericarditis per cardiology; no diagnostic finding to suggest pericarditis however.
- Recommended to follow outpatient with primary for evaluation regarding anxiety, and firestop/containment worker for monitoring and further testing.
Paroxysmal atrial fibrillation
- On apixaban 'as needed', per above.
- [id number] Score of 1; no indication for use of anticoagulation.
- Will defer management per outpatient cardiology, Dr. João Barbosa at [facility].
Internal hemorrhoids
- Likely the cause of blood per rectum.
- Hemoglobin within normal limits.
- Evaluated by gastroenterology.
Essential hypertension
- Continue amlodipine.
Thromboprophylaxis
- Apixaban.
Code status
- Full.
Anticipated Discharge: Today
Subjective/Interval History
-
Date of Service: August 23, 2024
Stable overnight. Symptoms resolving; mild chest wall pain persists.
Objective Data
-
Labs:
Laboratory Results
08/23/24 08/23/24 08/23/24
00:26 05:20 06:26
WBC 5.4
Hgb Cancelled 13.5 Cancelled
Hct 38.7 L
Plt Count 140
Sodium 141
Potassium 3.9
Chloride 104
Carbon Dioxide 24
BUN 20
Creatinine 0.9
Glucose 107 H
Calcium 9.1
Vital Signs:
Vital Signs
Temp Pulse Resp BP Pulse Ox
98.1 F 78 17 137/94 98
08/23/24 07:33 08/23/24 07:33 08/23/24 07:33 08/23/24 07:33 08/23/24 07:33
I&O
08/22/24 08/23/24 08/24/24
06:59 06:59 06:59
Intake Total 480 / 480
Balance 480 / 480
Review of Systems
-
History Source: Patient
Constitutional: Reports No Symptoms
EENT: Reports No Symptoms Reported
Respiratory: Reports No Symptoms
Cardiac: Reports Chest Pain (mild)
Abdomen/GI: Reports No Symptoms
Breast: Reports No Symptoms
Genitourinary: Reports No Symptoms
Musculoskeletal: Reports No Symptoms
Skin: Reports No Symptoms
Endocrine: Reports No Symptoms
Hematologic / Lymphatic: Reports No Symptoms
Allergy / Immunology: Reports No Symptoms
Physical Exam
-
General: No Apparent Distress and Comfortable
HEENT: Normocephalic, Atraumatic, Moist Mucous Membranes, Anicteric and No Ptosis
Respiratory: Clear to Auscultation and Non Labored Respirations
Cardiac: Regular Rhythm and S1/S2
GI: Soft, Nontender, Nondistended and No Hepatosplenomegaly
Genito-urinary: No Costovertebral Tender
Musculoskeletal: No Clubbing, No Cyanosis and No Edema
Skin: Warm, Dry and IV Access / Catheter Site
Neuro: Awake, Alert, Oriented and Nonfocal/Grossly Intact
Hematologic / Lymphatic: No Lymphadenopathy
Psych: Calm and Intact Judgement/Insight
[2024-08-23 09:45] VITALS: BP 158/99; PULSE 71
[2024-08-23 10:32] VITALS: BP 158/99; PULSE 71
--- NOTE | 2024-08-23 10:35 | PTOTSP ---
The patient is independent with ambulation and elevations, no strength, coordination, or balance deficits noted. No PT needs identified at this time, will sign off.
[2024-08-23] MEDS: COLCHICINE 0.6 MG PO (11:07)
[2024-08-23] MEDS: MOTRIN 800 MG PO (11:07)
[2024-08-23 11:13] VITALS: BP 132/65
[2024-08-23 11:24] LABS: Total Thyroxine 6.23 ug/dl (5.5-11.0)
--- NOTE | 2024-08-23 12:33 | CM ---
Patient with Dx chest pain.
Met with patient and his SO Roselyn;
the patient resides with his girlfriend in a 2 story house.
He has been independent in ADLs and ambulation.
The patient is active, works, drives.
His only DME is a BP machine.
No Prior VN.
PCP = Nathaniel Eid
Pharmacy - [facility]
Observation Letter completed.
No CM d/c needs identified.
The patient says he feels ready for d/c and is hoping to go home today.
Roselyn will provide a ride home.
No CM d/c needs identified.
Plan home today.
--- NOTE | 2024-08-23 14:30 | W.DCSUMMARY ---
Documented by User: Musa Chavez MD, Resident 08/23/24 14:37
Discharge Summary
Discharge Data
Date of Admission: 08/22/24
Date of Discharge: 08/23/24
-
Pending Results: No
Hospital Course
Primary discharge diagnosis
* Atypical chest pain
Secondary discharge diagnoses
- Paroxysmal atrial fibrillation
- Internal hemorrhoids
- Essential hypertension
Hospital course
Regino Ohara, age 43, developed left-sided chest pain which began radiating to the left upper extremity on 08-22-24, which started radiating up to his face and left lower extremity. He was being driven to the hospital but had to pull-over due to
new-onset palpitations and tremors. He was then transported to the hospital by EMS. Of note, he also mentioned new-onset blood in stools. He was evaluated by cardiology, neurology and gastroenterology. Physical examination for musculoskeletal
causes, echocardiogram, electrocardiogram, telemetry tracings, troponin *2, neuroimaging and blood work were unremarkable for any acute or chronic pathologies. The blood in stools was likely due to internal hemorrhoids, and etiology was unlikely to
be neurological per neurology. Cardiology recommended adjustments to his antihypertensive regimen and treating empirically for pericarditis. Also discussed the possibility of this being related to anxiety and an episode of panic attack; follow-up
with primary in less than 1 week. Cannot confidently rule out an underlying arrhythmia or cardiac causes; follow-up with cardiology in less than 1 week. He remained hemodynamically stable throughout the hospital stay and symptoms had resolved
completely by the time of discharge.
Discharge Plan
-
Patient Disposition: Home (Routine Discharge)
Discharge Diagnosis/Procedures: Left-sided chest pain
Condition: Good
Diet: No restrictions
Activity: No restrictions
Driving Restrictions: As prior to admission
Bathing Restrictions: None
Blood Work: CBC and CMP in 1 week and 2 months
Activity Restrictions/Additional Instructions:
Ibuprofen Taper:
600 mg 3 times a day for 1 week
400 mg 3 times a day for 1 week
200 mg 3 times a day for 1 week
Then stop.
Colchicine 0.6mg twice daily for 3 months. If you have GI side effects, please call your primary route specialist.
Instructions: Pericarditis in adults, Panic Disorder (DC)
Referrals:
João Barbosa MD [Non-Admitting Privileges] - in one to two weeks
Aracely Nelson DO [Active] - (follow up with GI when stable from cardiac and neuro standpoint to arrange for EGD and colonoscopy with rectal bleeding and difficulty swallowing)
Nathaniel Eid MD [Family Provider] -
Prescriptions:
New
colchicine 0.6 mg tablet
0.6 mg PO Q12H 90 Days Qty: 180 0RF
nifedipine 30 mg tablet extended release
30 mg PO DAILY 30 Days Qty: 30 0RF
pantoprazole 20 mg tablet,delayed release (DR/EC)
20 mg PO DAILY 90 Days Qty: 90 0RF
Continued
metoprolol tartrate 25 mg tablet
25 mg PO PRN PRN (Reason: symptoms of AFib)
Eliquis 5 mg tablet
5 mg PO PRN PRN (Reason: symptoms of AFib)
Discontinued
amlodipine 5 mg tablet
5 mg PO HS
Discharge Orders:
Discharge Patient (As Directed); Ordered 08/23/24
Ordered By: Musa Chavez
Discharge Date and Time
Discharge Date/Time: 08/23/24 14:04
Print Language: GUAMANIAN

Documented by User: Chandu Zapata MD 08/23/24 14:45
Discharge Summary
Discharge Data
Date of Admission: 08/22/24
Date of Discharge: 08/23/24
Discharge Plan
-
Patient Disposition: Home (Routine Discharge)
Discharge Diagnosis/Procedures: Left-sided chest pain
Condition: Good
Diet: No restrictions
Activity: No restrictions
Driving Restrictions: As prior to admission
Bathing Restrictions: None
Blood Work: CBC and CMP in 1 week and 2 months
Activity Restrictions/Additional Instructions:
Ibuprofen Taper:
600 mg 3 times a day for 1 week
400 mg 3 times a day for 1 week
200 mg 3 times a day for 1 week
Then stop.
Colchicine 0.6mg twice daily for 3 months. If you have GI side effects, please call your primary route specialist.
Instructions: Pericarditis in adults, Panic Disorder (DC)
Referrals:
João Barbosa MD [Non-Admitting Privileges] - in one to two weeks
Aracely Nelson DO [Active] - (follow up with GI when stable from cardiac and neuro standpoint to arrange for EGD and colonoscopy with rectal bleeding and difficulty swallowing)
Nathaniel Eid MD [Family Provider] -
Prescriptions:
New
colchicine 0.6 mg tablet
0.6 mg PO Q12H 90 Days Qty: 180 0RF
nifedipine 30 mg tablet extended release
30 mg PO DAILY 30 Days Qty: 30 0RF
pantoprazole 20 mg tablet,delayed release (DR/EC)
20 mg PO DAILY 90 Days Qty: 90 0RF
Continued
metoprolol tartrate 25 mg tablet
25 mg PO PRN PRN (Reason: symptoms of AFib)
Eliquis 5 mg tablet
5 mg PO PRN PRN (Reason: symptoms of AFib)
Discontinued
amlodipine 5 mg tablet
5 mg PO HS
Discharge Orders:
Discharge Patient (As Directed); Ordered 08/23/24
Ordered By: Musa Chavez
Discharge Date and Time
Discharge Date/Time: 08/23/24 14:04
Print Language: GUAMANIAN
[2024-08-25 02:04] LABS: ANA, IgG Reflex to HEp-2 None Detected (None Detected)
== END 2024-08-23 14:04 | disposition home or self-care (01) ==
LOC: 3 WEST ACU 14:17
PROVIDERS: Registered Nurse; Student in an Organized Health Care Education/Training Program; ADMITTING PHYSICIAN Internal Medicine; ATTENDING PHYSICIAN Internal Medicine; CONSULT PHYSICIAN Internal Medicine; CONSULT PHYSICIAN Internal Medicine Cardiovascular Disease; CONSULT PHYSICIAN Psychiatry & Neurology Neurology; EMERGENCY PHYSICIAN Emergency Medicine; FAMILY PHYSICIAN Family Medicine
DX: R07.89 Other chest pain (principal); I48.0 Paroxysmal atrial fibrillation; I16.0 Hypertensive urgency; K64.8 Other hemorrhoids; I10 Essential (primary) hypertension; I31.9 Disease of pericardium, unspecified; F41.9 Anxiety disorder, unspecified; Z79.01 Long term (current) use of anticoagulants; Z79.899 Other long term (current) drug therapy
CPT/HCPCS: 70450; 70496; 70498; 70551; 80048; 80053; 80061; 82607; 82728; 82746; 82962; 83036; 84436; 84443; 84484; 85018; 85025; 85027; 85610; 85652; 85730; 86038; 86140; 92610; 93005; 93306; 97161; 97165; 99285; G0378; Q9967

== ENCOUNTER 2024-12-12 12:27 | Emergency (ER) | payer OTHER, SELFPAY ==
[2024-12-12 12:45] VITALS: BP 174/110
[2024-12-12 13:19] LABS: % Basophils 0.4 % (0-2); % Eosinophils 1.3 % (0-6); % Immature Granulocytes 0.2 % (0-0.5); % Lymphocytes 29.8 % (20.5-51.1); % Monocytes 9.7 % (1.7-9.3); % Neutrophils 58.6 % (42.2-75.2); Absolute Eosinophils 0.1 10^3/uL (0-0.7); Absolute Lymphocytes 1.4 10^3/uL (1.2-3.4); Absolute Monocytes 0.5 10^3/uL (0.1-0.6); Absolute Neutrophils 2.8 10^3/uL (1.4-6.5); Hematocrit 41.5 % (39.0-52.0); Hemoglobin 14.8 g/dL (13.0-18.0); Mean Corp Hgb Conc. 35.7 g/dL (33.0-37.0); Mean Corpuscular Hgb 30.6 pg (27.0-31.0); Mean Corpuscular Volume 85.7 fL (80.0-94.0); Mean Platelet Volume 8.9 fL (7.4-10.4); Nucleated Red Blood Cells % 0 % (-); Platelet Count 150 10^3/uL (130-400); Red Blood Cell Count 4.84 10^6/uL (4.70-6.10); Red Cell Dist. Width 12.1 % (11.5-14.5); White Blood Cell Count 4.8 10^3/uL (4.8-10.8)
[2024-12-12 13:30] LABS: ALT (SGPT) 44 U/L (0-50); AST (SGOT) 31 U/L (17-59); Alkaline Phosphatase 60 U/L (38-126); Blood Urea Nitrogen 15 mg/dl (9-20); Calcium 9.8 mg/dl (8.4-10.2); Carbon Dioxide 24 mmol/L (22-30); Chloride 104 mmol/L (98-107); Glucose 134 mg/dl (70-99); Lipase 127 U/L (23-300); Potassium 3.7 mmol/L (3.5-5.1); Sodium 140 mmol/L (135-145); Total Bilirubin 0.8 mg/dl (0.2-1.3); Total Protein 8.1 g/dl (6.3-8.2); eGFR > 60.00
[2024-12-12 13:47] VITALS: BMI 25.5
--- NOTE | 2024-12-12 13:48 | ED.GENMED ---
History of Present Illness
General
Chief Complaint: Abdominal Pain
Source: patient
Exam Limitations: none
Time Seen by Provider: 12/12/24 13:30
History of Present Illness
History of Present Illness:
44yoM with a history of atrial fibrillation on as needed metoprolol presenting with his significant other for evaluation of abdominal pain. Symptoms began about an hour and half prior to arrival. He initially started to experience a burning
sensation in the center of his abdomen while sitting which became severe about 10-15 minutes later. He states this is the worst pain he has ever experienced and he currently rates his pain as a 30 out of 10 in severity. The pain is generalized
throughout the abdomen. He also has some lower back discomfort. Shortly after his abdominal pain began, he developed a headache. He is otherwise asymptomatic and denies any nausea, vomiting, diarrhea, constipation, fevers, dysuria, chest pain,
shortness of breath, hematochezia. He had a normal bowel movement on arrival to the ED. No previous abdominal surgeries.
Past History
Past History
ED Past Medical History: None and Other (adopted)
ED Past Surgical History: None
Social History
Tobacco: Non-smoker
Alcohol: Occasional
Drug: None
Personal:
Living: with family
Phy Exam
Physical Exam
Physical Exam:
Appears uncomfortable secondary to pain, non-toxic
General Physical Exam
General Presentation: well appearing and moderate distress
General age: appears stated age
General Skin: warm and dry
General Habitus: normal
General Mental: alert
ENT Exam
ENT Exam: normocephalic
Cardiovascular Exam
Cardiovascular Exam: regular rate/rhythm and no murmur
Pulmonary Exam
Pulmonary Exam: lungs clear, no respiratory distress, no rales, no crackles and no rhonchi
Gastrointestinal Exam
Gastrointestinal Exam: non tender, soft, non distended and other (Abdomen soft, non-distended. No reproducible tenderness to palpation. )
Neurological Exam
Neurological Exam: alert
Cristina Coma Scale
Eye Opening: Spontaneous
Verbal Response: Oriented
Motor Response: Obeys Commands
GCS Total Score: 15
Skin Exam
Skin Exam: normal color and warm/dry
Course
Orders/Labs/Results
Orders:
Orders
12/12/24 12:45
Electrocardiogram (*1) Urgent
Reason for Study: Abdominal Pain
EKG- Treatment ONCE
12/12/24 13:03
Complete Blood Count/With Diff Urgent
Comprehensive Metabolic Panel Urgent
Lipase Urgent
12/12/24 13:47
0.9% Sodium Chloride 1000 ml [Nss] 1,000 ml IV BOLUS
HYDROmorphone [Dilaudid] 1 mg IV NOW STA
12/12/24 13:49
CT Abd/pelvis W Iv Cont Urgent
Comment:
Reason For Exam: generalized abd pain
CT Head W/o Iv Contrast Urgent
Comment:
Reason For Exam: acute headache
12/12/24 15:02
Lactate Level [Lactic Acid] Urgent
Troponin I Urgent
Urinalysis Reflex To Culture Urgent
Date Specimen was Collected: 12/12/24
Time Specimen was Collected: 12:45
Urine Microscopic Reflex Cult Urgent
Urine Culture Urgent
SHABBIR Source: U
Specimen Description:
Date Specimen was Collected: 12/12/24
Time Specimen was Collected: 12:45
12/12/24 15:32
US Abdomen Complete/Upper Urgent
Comment:
Reason For Exam: abd pain, cholelithiasis seen on CT
Abnormal Lab Results
12/12/24 12/12/24
13:03 15:02
Monocytes % 9.7 H %
(1.7-9.3)
Glucose 134 H mg/dl
(70-99)
Urine Bacteria (Reflex) Moderate A
(Negative)
Urine Albumin (Reflex) 2+ A
(Neg - Trace)
12/12/24 13:03
12/12/24 13:03
Vital Signs
Initial and Last Documented VS:
Initial Vital Signs
Temp Pulse Resp Pulse Ox
98.8 F 75 16 98
12/12/24 12:42 12/12/24 12:42 12/12/24 12:42 12/12/24 12:42
Last Documented Vital Signs
Temp Pulse Resp BP Pulse Ox
98.8 F 79 16 159/76 99
12/12/24 12:42 12/12/24 17:10 12/12/24 17:10 12/12/24 17:10 12/12/24 17:10
MDM/Problems Addressed
Differential Diagnosis Includes:
44yoM here with abd pain. Began 1.5 hours ago. Initially mild but became severe within 10-15 minutes. C/o generalized burning pain. Also having a headache. No n/v/d. He is hypertensive with otherwise normal vitals. No significant tenderness or signs
of peritonitis on abdominal exam. Differential diagnosis includes but is not limited to: kidney stone, perforated viscous, appendicitis, ischemic colitis, diverticulitis
Initial ED plan: Check abdominal labs, lactate, troponin/EKG, UA, CT head, and CT abdomen. IV Dilaudid and fluid bolus for symptoms.
*EKG
Interpreted by ED Provider?: Yes
EKG Intrepretation Date: 12/12/24
Heart Rate: 66
Rate: normal
Rhythm: sinus
[place]: normal axis
Interval: normal interval
QRS Pattern: normal QRS
*Critical Care Note
Total Time (30-74mins, 75-104mins- exclusive of procedures): Not Applicable
Update Note
Update Note:
Labs unremarkable including normal white count, lactate, lipase, LFTs, and renal function. EKG shows NSR without ischemic changes and troponin WNL. CT head negative for acute findings. CT abdomen shows cholelithiasis without other acute findings.
Normal appendix visualized and there is no intestinal obstruction or free air. Upper abdominal ultrasound added which again shows cholelithiasis without evidence of cholecystitis. On reassessment, he reports feeling much better. He did admit that
his abdominal pain improved to an 8/10 in severity just prior to getting his pain medication and now pain is 4/10 in severity. Abdominal exam repeated and continues to be benign. No indication for hospitalization. He was advised to f/u with GI and
general surgery. Strict ED return precautions discussed. Patient in agreement with plan and was discharged in stable condition.
ED Attending Note
-
Portions of this chart may have been created with voice recognition software.� Occasional wrong word or��sound alike� substitutions may have occurred due to the inherent limitations of voice recognition software.
Discharge Plan
Departure
Patient Disposition: Home (Routine Discharge)
Date of Disposition: 12/12/24
Time of Disposition: 16:43
Patient with high blood pressure during this ER visit?: Yes
Discharge Problem:
Acute generalized abdominal pain, Cholelithiasis
Instructions: Abdominal Pain
Prescriptions:
No Action
metoprolol tartrate 25 mg tablet
25 mg PO PRN PRN (Reason: symptoms of AFib)
Eliquis 5 mg tablet
5 mg PO PRN PRN (Reason: symptoms of AFib)
colchicine 0.6 mg tablet
0.6 mg PO Q12H 90 Days Qty: 180 0RF
nifedipine 30 mg tablet extended release
30 mg PO DAILY 30 Days Qty: 30 0RF
pantoprazole 20 mg tablet,delayed release (DR/EC)
20 mg PO DAILY 90 Days Qty: 90 0RF
Referrals:
Chris Ventura MD [Active] -
Steven Perez MD [Active] -
Nathaniel Eid MD [Family Provider] -
Activity Restrictions/Additional Instructions:
Please follow-up with your family doctor, gastroenterology, and general surgery. Return to the ER with any new or worsening symptoms.
Interventions
Interventions:
*Risk Screen - Suicide Last Done: 12/12/24 12:42
*Neglect/Abuse Screening Last Done: 12/12/24 12:42
ED- Fall Risk Assessment Last Done: 12/12/24 13:45
*Nursing Disposition Last Done: 12/12/24 17:10
FD-Bvavbb-Hggldibhxq Assessment Last Done: 12/12/24 13:45
Discharge Date and Time
Discharge Date/Time: 12/12/24 17:15
Print Language: BENINESE
[2024-12-12] MEDS: DILAUDID 1 MG IV (15:05)
[2024-12-12] MEDS: NSS 1000 IV (15:05)
[2024-12-12 15:21] LABS: Urine Albumin 2+ (Neg - Trace); Urine Bilirubin Negative (Negative); Urine Character Clear (Clear); Urine Color Yellow; Urine Glucose Negative (Negative); Urine Ketone Negative (Negative); Urine Leukocyte Negative (Negative); Urine Nitrite Negative (Negative); Urine Occult Blood Negative (Negative); Urine Specific Gravity 1.015 (<1.030); Urine Urobilinogen Negative (Neg - 1+)
[2024-12-12 15:34] LABS: Lactic Acid 1.6 mmol/L (0.7-2.0); Urine Red Blood Cell 0-2 /HPF (0-2); Urine Squamous Cell 0-2 /LPF (Few)
[2024-12-12 15:35] LABS: Urine White Cell 0-2 /HPF (0-5)
[2024-12-12 15:38] LABS: Urine Amorphous Seen; Urine Bacteria Moderate (Negative)
[2024-12-12 15:47] LABS: Troponin I 0.017 ng/ml
[2024-12-12 17:10] VITALS: BP 159/76
== END 2024-12-12 17:15 | disposition home or self-care (01) ==
LOC: EMR 12:27
PROVIDERS: Emergency Medicine; Physician Assistant; EMERGENCY PHYSICIAN Emergency Medicine; FAMILY PHYSICIAN Family Medicine
DX: K80.20 Calculus of gallbladder without cholecystitis without obstruction (principal); R10.84 Generalized abdominal pain; I48.91 Unspecified atrial fibrillation
CPT/HCPCS: 99285; 96374; 96361; 70450; 74177; 76700; 80053; 81003; 81015; 83605; 83690; 84484; 85025; 87086; 93005; Q9967

== ENCOUNTER 2025-05-10 03:26 | Observation (INO) | payer OTHER, SELFPAY ==
[2025-05-09 18:43] VITALS: BP 164/102
[2025-05-09 19:15] LABS: Hematocrit 36.6 % (39.0-52.0); Hemoglobin 13.4 g/dL (13.0-18.0); Mean Corp Hgb Conc. 36.6 g/dL (33.0-37.0); Mean Corpuscular Volume 85.1 fL (80.0-94.0); Nucleated Red Blood Cells % 0 % (-); Platelet Count 161 10^3/uL (130-400); Red Cell Dist. Width 12.3 % (11.5-14.5)
[2025-05-09 19:27] LABS: ALT (SGPT) 77 U/L (0-50); AST (SGOT) 41 U/L (17-59); Albumin 5.0 g/dl (3.5-5.0); Alkaline Phosphatase 54 U/L (38-126); Blood Urea Nitrogen 23 mg/dl (9-20); Calcium 9.6 mg/dl (8.4-10.2); Carbon Dioxide 30 mmol/L (22-30); Chloride 102 mmol/L (98-107); Glucose 109 mg/dl (70-99); Potassium 4.1 mmol/L (3.5-5.1); Sodium 137 mmol/L (135-145); Total Protein 8.0 g/dl (6.3-8.2); eGFR > 60.00
[2025-05-09 19:39] LABS: Troponin I < 0.012 ng/ml
[2025-05-09 21:11] VITALS: BMI 23.8
[2025-05-09 22:22] VITALS: BP 155/103
--- NOTE | 2025-05-09 22:42 | ED.GENMED ---
History of Present Illness
General
Chief Complaint: Chest Pain
Source: patient
Exam Limitations: none
Time Seen by Provider: 05/09/25 20:52
Nursing documentation reviewed up to this point in time: agreed with
History of Present Illness
History of Present Illness:
see MDM
Past History
Past History
ED Past Medical History: Arrthythmia, HTN and Other (adopted)
ED Past Surgical History: None
Social History
Tobacco: Non-smoker
Alcohol: Occasional
Drug: None
Personal:
Living: with family
Review of Systems
Review of Systems
Allergies reviewed?: Yes
All Other Systems: Not applicable
Phy Exam
Physical Exam
Physical Exam:
GENERAL: Alert , in no apparent distress
EYE: pupils equal and reactive
NECK: Supple
ENT: o/p clr, mmm.
CARDIAC: Regular rate and rhythm .
chest: L upper chest wall mild tendenress, no rash; no bruising
LUNGS: Clear breath sounds bilaterally, no acute respiratory distress, no wheezes/rales/rhonchi
ABDOMEN: Soft, without focal tenderness, no r/g, no cvat, normal bowel sounds
NEUROLOGICAL: Alert and oriented, no focal neuro deficits
SKIN: Warm and dry, skin intact.
MUSCULOSKELETAL: No edema, well perfused. neg kavitha's sign
PSYCH: Normal and appropriate interaction.
Scores
Heart Score for Chest Pain Patients
STEMI patient?: No
History: Moderately Suspicious
ECG: Nonspecific Repolarization
Age: </= 45 years
Risk Factors: 1 or 2 Risk Factors
Troponin: </= Normal Limit
Heart Score for Chest Pain Patients: 3
Heart Score Risk: 2.5% MACE over next 6 weeks
Course
Orders/Labs/Results
Orders:
Orders
05/09/25 18:43
Electrocardiogram (*1) Urgent
Reason for Study: Chest Pain
EKG- Treatment ONCE
05/09/25 19:00
Complete Blood Count/With Diff Urgent
Comprehensive Metabolic Panel Urgent
NT-proBNP Urgent
Troponin I Urgent
05/09/25 22:10
Electrocardiogram (*1) Urgent
Reason for Study: Chest Pain
CT Chest PE Study Urgent
Comment:
Reason For Exam: L pleuritic CP, tachycardia
EKG- Treatment ONCE
05/09/25 22:28
Troponin I Urgent
05/10/25 02:33
Admit/Transfer Patient As Directed
Co-Sign Provider:
Level of Care: Observation services
Assign to:: Telemetry
Physician / Group: Alli
Diagnosis: Chest Pain
Reason for Telemetry: Chest Pain syndromes
Date to Stop Telemetry: 05/12/25
Time to Stop Telemetry: 11:00
Code Status As Directed
Resuscitation Status: Full Code
PRN Pain Medication Management As Directed
May give lesser potent ordered pain med per pt: Yes
preference::
Protocol:: Medication orders for pain may be administered in a
manner that supports deferring to patient preference
when the pt is:
- Requesting an ordered lesser potent pain medication.
Least to most potent pain medications are defined
as: acetaminophen < NSAID < tramadol < opioids
(morphine, oxycodone, hydromorphone).
- Requesting a lesser dose of the same medication IF
ORDERED.
- Requesting a less intrusive route of administration
if both routes are prescribed by the provider (PO <
IV).
05/10/25 04:19
0.9% Sodium Chloride 1000 ml [Nss] 1,000 ml IV 80 mls/hr
Acetaminophen [Tylenol] 650 mg PO Q4HPRN PRN
Ketorolac [Toradol] 10 mg IV Q6HPRN PRN
Nitroglycerin Sublingual [Nitrostat (Sublingual)] 0.4 mg SL [id number] PRN
05/10/25 04:19
CARDIOLOGY CONSULT Routine
Consulting Provider: Juan M Gaines
Was physician already notified: No
Reason for consult: Chest pain
Consult Notification Routine
Specialty to Notify: Cardiology
Date consulting provider notified: 05/10/25
Time consulting provider notified: 07:14
Notified:: Provider
Activity As Directed
Activity Level: Ambulate
EKG with chest pain [ECG as needed] As Directed
ECG as needed for:: Chest Pain
I/O [Intake/ Output] As Directed
Frequency: Per unit guidelines
Vital Signs As Directed
Frequency: Per unit guidelines
Weight As Directed
Frequency: Daily
Oxygen Therapy [O2 Therapy] [RESP] Routine
Titrate/Wean O2 to maintain O2 sat greater than (%): 94
05/10/25 04:37
Basic Metabolic Panel IN AM
Cardiovascular Evaluation IN AM
Complete Blood Count/No Diff IN AM
Glycohemoglobin (HgbA1c) Routine
Troponin I Q6H
05/10/25 06:00
Echo 2D MMode Doppler [Echo 2D MMode Color/Doppler] IN AM
Reason for Study: Chest pain, Edema
NPO
Allow oral meds: Yes
Allow clear liquids: Sips of Clears
05/10/25 08:00
Apixaban [Eliquis] 5 mg PO BID
Aspirin Chewable [Low Strength Aspirin] 81 mg PO DAILY
Hydrochlorothiazide [Oretic] 12.5 mg PO DAILY
NIFEdipine EXTENDED RELEASE [Procardia Xl (Extended Release)] 30 mg PO DAILY
05/12/25 11:00
DC Protocol for Telemetry ONCE
Abnormal Lab Results
05/09/25
19:00
WBC 4.1 L 10^3/uL
(4.8-10.8)
RBC 4.30 L 10^6/uL
(4.70-6.10)
Hct 36.6 L %
(39.0-52.0)
MCH 31.2 H pg
(27.0-31.0)
Absolute Lymphs (auto) 1.0 L 10^3/uL
(1.2-3.4)
Monocytes % 11.4 H %
(1.7-9.3)
BUN 23 H mg/dl
(9-20)
Glucose 109 H mg/dl
(70-99)
ALT 77 H U/L
(0-50)
05/09/25 19:00
05/09/25 19:00
Vital Signs
Initial and Last Documented VS:
Initial Vital Signs
Temp Pulse Resp BP Pulse Ox
36.6 C 89 16 164/102 100
05/09/25 18:43 05/09/25 18:43 05/09/25 18:43 05/09/25 18:43 05/09/25 18:43
Last Documented Vital Signs
Temp Pulse Resp BP Pulse Ox
36.8 C 78 16 135/102 98
05/10/25 15:16 05/10/25 15:13 05/10/25 15:16 05/10/25 15:10 05/10/25 15:16
MDM/Problems Addressed
Differential Diagnosis Includes:
see MDM
MDM/Problems Addressed:
Note:
CHIEF COMPLAINT(S)
Chest pain, recurring atrial fibrillation, and swelling in the legs.
HISTORY OF PRESENT ILLNESS
The patient is a 44-year-old male with a previous history of paroxysmal atrial fibrillation (AFib), presenting with chest pain and symptoms suggestive of AFib. The patient reported entering AFib the yesterday around lunchtime and took metoprolol to
help manage the symptoms. The episode seemed to resolve after aabout 2 hours,l where he felt not racing heart rate but was aware of his heart rate; he denies that it feels like skipped beats.
the rest of the day was fine.
today the patient experienced a recurrence of fluttering sensations in the chest, which he described as resembling a hiccup. This symptom was accompanied by a L upper chest wall pain persisting since around 3 PM and described as a consistent pain
rated at a severity of 7 out of 10. The patient notes that the pain is present at rest and exacerbates with deep breathing.
He also reports episodes of ankle edema starting three weeks ago, initially thought to be a side effect of nifedipine, as noted by his family physician. The swelling is unrelated to the temperature, and he describes visible indentations left by
pressure. The patient mentioned traveling recently, noting that during this time, his legs did not swell.
Additional symptoms include back pain, coinciding with episodes of AFib, although he has never experienced such 'skipping' or fluttering previously. The patient has had at least eight episodes of AFib, with one instance of rapid AFib resulting in
syncope. Previous tests, including echocardiograms, have consistently returned negative.
The patient expressed concern over his medication regimen, particularly regarding the anticoagulant apixaban (Eliquis), which he started taking consistently over the past few weeks. Initially prescribed on an as-needed basis, he is unsure about the
necessity of daily intake given varying opinions from healthcare providers.
EXTERNAL RECORDS REVIEWED
None explicitly mentioned, though the patient noted multiple previous evaluations including echocardiograms and potential computed tomography scans in the past.
CHRONIC MEDICAL CONDITIONS SIGNIFICANTLY AFFECTING CARE
Atrial fibrillation with occurrences of rapid episodes.
REVIEW OF SYSTEMS
- Respiratory: Denies shortness of breath, though increased discomfort with deep breathing.
- Cardiovascular: Chest pain consistent in nature, history of atrial fibrillation.
- Musculoskeletal: Back pain noted.
- Extremities: Significant pedal edema present bilaterally.
PHYSICAL EXAM
- Nursing notes reviewed and vital signs reviewed.
- Cardiovascular: Chest pain persistent at rest, affecting quality of life.
- Extremities: Notable swelling of the feet, described as club-like previously.
PROBLEM LIST
Acute:
- Chest pain with associated risk of cardiac origin
- Recurrent symptomatic atrial fibrillation
Chronic:
- Atrial fibrillation
PLAN
- Perform a second cardiac marker test to rule out myocardial infarction.
- Obtain computed tomography scan to evaluate chest structures, particularly in light of atypical front and back chest pain.
- Continue monitoring levels of discomfort; offered pain management with acetaminophen, noted not to use ibuprofen due to anticoagulation with apixaban.
- Discussion with the patient about the possible use of a property assessment monitor for two weeks to assess rhythm irregularities which might justify the permanent use of apixaban or corrective procedures such as ablation.
- Further outpatient management may involve cardiology follow-up with consideration for a stress test to assess cardiac risk factors.
DIFFERENTIAL DIAGNOSIS
The Differential Diagnosis includes, in no particular order and is not limited to:
1. Myocardial Infarction
2. Acute Coronary Syndrome
3. Atrial Fibrillation with Rapid Ventricular Response
4. Pulmonary Embolism
5. Pericarditis
6. Costochondritis
7. Heart Failure Exacerbation
8. Anxiety-Induced Chest Pain
9. Esophageal Spasm
10. Pneumonia
05/10/25 - 00:01
ct PE neg;
The patients second troponin test showed a slight increase to 0.022, still within the negative range, but notable enough to consider potential cardiac stress.
pt is still having some chest pain in the same area, worse with breathing/movement
his previous admission suggested possibility of pericarditis
dw dr. coulter
given RF of HTN and ongoing symptoms with delta trop, will amid
*Pulse Oximetry
SaO2: 98
Oxygen Mode of Delivery: Room air
Patient hypoxic: no (100)
*Critical Care Note
Total Time (30-74mins, 75-104mins- exclusive of procedures): Not Applicable
ED Attending Note
-
Portions of this chart may have been created with voice recognition software.� Occasional wrong word or��sound alike� substitutions may have occurred due to the inherent limitations of voice recognition software.
Discharge Plan
Departure
Patient Disposition: Admit
Date of Disposition: 05/10/25
Time of Disposition: 00:03
Admit to: Telemetry
Presentation/result/management discussed w/ accepting MD/DO: Hospitalist
Condition: Fair
Covid-19: Not Applicable
Discharge Problem:
Chest pain
Interventions
Interventions:
*Risk Screen - Suicide Last Done: 05/09/25 21:11
*General Assessment Last Done: 05/09/25 21:11
*Neglect/Abuse Screening Last Done: 05/09/25 21:11
*ED- Fall Risk Assessment Last Done: 05/09/25 21:11
*ED COVID-19 Vaccine History Last Done: 05/09/25 21:11
*Nursing Disposition Last Done: 05/10/25 04:29
ED- Cardiac Assessment Last Done: 05/09/25 21:11
Discharge Date and Time
Discharge Date/Time: 05/10/25 04:29
[2025-05-09 23:22] LABS: Troponin I 0.022 ng/ml
[2025-05-10] VITALS (11 sets, daily range): BP systolic 125–162; BP diastolic 85–111; BMI 24.8
--- NOTE | 2025-05-10 02:36 | HPS.HSE ---
Family Physician
-
Family Physician: Nathaniel Eid
Chief Complaint
-
Chest Pain
History of Present Illness
Patient is a 44y M with PMH significant for paroxysmal A-Fib and hypertension who presents to ED complaining of chest pain. Patient states that he developed chest pain / back pain and palpitations on Thursday evening. He took a metoprolol which
he uses as needed for symptoms of A-Fib and his symptoms improved. He felt well until 3 PM on Thursday when his symptoms returned. He reports L sided chest discomfort / aching that is fairly consistent. Occasional sharp / shooting pains into the L
chest and the back as well. Pain is worse after exhalation. No fevers / chills, cough, N/V/D, etc.
Patient reports recent development of ankle edema for the past month or so.
He was started on HCTZ by his PCP and the edema seems to have improved.
His Equipment Application Specialist is Dr. Barbosa out of [place].
He typically takes Eliquis 'as needed' for A-Fib as well - but notes that he has been taking it consistently for the past two weeks (as he was concerned regarding the new ankle swelling).
Medical History
Past Medical History
Past Medical History: Reports Other
Additional Past Medical History:
Hypertension
Paroxysmal Atrial Fibrillation
Past Surgical History: Reports Other
Additional Past Surgical History:
sinus surgery
adenoidectomy
Social History
Tobacco: Non-smoker
Alcohol: Occasional
Drug: None
Personal:
Living: With Family
Employment: Employed
Family History
Family History: Not pertinent
Allergies / Home Medications
Allergies reflects when Allergies were last updated in [facility].
Home Medications with original date entered in [facility]
Allergy/Medication List:
Allergies
Allergy/AdvReac Type Severity Reaction Status Date / Time
No Known Allergies Allergy Verified 05/09/25 18:51
Home Medications
apixaban 5 mg tablet (Eliquis) 5 mg PO PRN PRN symptoms of AFib 08/22/24
metoprolol tartrate 25 mg tablet 25 mg PO PRN PRN symptoms of AFib 08/22/24
nifedipine 30 mg tablet,extended release 30 mg PO DAILY 30 days #30 tabs 08/23/24
hydrochlorothiazide 12.5 mg tablet 12.5 mg PO DAILY 05/10/25
Review of Systems
-
History Source: Patient
A 12 point ROS was completed and negative except as noted: Yes
Constitutional: Denies Fever, Fatigue or Chills
EENT: Denies Sore Throat
Respiratory: Denies Cough or Trouble Breathing
Cardiac: Reports Chest Pain and Palpitations; Denies Diaphoresis or Syncope
Abdomen/GI: Denies Abdominal Pain, Nausea, Vomiting or Diarrhea
: Denies Dysuria or Frequency
Musculoskeletal: Reports Edema; Denies Joint Pain
Neurological: Denies Dizzy or Headache
Psych: Denies Depression or Anxiety
Physical Exam
Vital Signs
Vital Signs
Temp Pulse Resp BP Pulse Ox
97.9 F 56 17 145/103 97
05/09/25 18:43 05/10/25 01:00 05/10/25 01:00 05/10/25 01:00 05/10/25 01:00
Physical Exam
General: Other (44y M in no acute distress.)
HEENT: Moist mucous membranes and PERRLA
Respiratory: Clear; No Wheezes, Rales or Rhonchi
Cardiac: S1/S2, Regular Rhythm and Other (Mild tenderness over the L chest wall. No overlying skin lesions, rashes, etc.); No Murmur
GI: Soft, Non Tender, Non Distended and Normal Bowel Sounds
Musculoskeletal: No Clubbing, No Cyanosis and No Edema
Neuro: AO x 3
Laboratory Results
-
05/09/25 19:00
05/09/25 19:00
Laboratory Results
Total Bilirubin 0.7 mg/dl (0.2-1.3) 05/09/25 19:00
AST 41 U/L (17-59) 05/09/25 19:00
ALT 77 U/L (0-50) H 05/09/25 19:00
Alkaline Phosphatase 54 U/L (38-126) 05/09/25 19:00
Troponin I 0.022 ng/ml D 05/09/25 22:28
Impression/Plan
-
A/P: Patient is a 44y M with PMH significant for HTN and PA-Fib who presents to ED complaining of chest pain.
Atypical Chest Pain
- Observe overnight for further evaluation and treatment.
- EKG without evident ischemia.
- Troponin non-negative (0.022 second set).
- ASA daily for now.
- Continue to follow troponin to peak.
- Follow for new / worsening symptoms.
- Check Echo given recent complaints of LE edema.
- Cardiology evaluation for additional recommendations.
Paroxysmal Atrial Fibrillation
- Patient felt that his symptoms were due to A-Fib - but no A-Fib appreciated during his time here thus far.
- Monitor on tele.
- Continue Eliquis BID for now.
Benign Hypertension
- Stable. Continue current med regimen and adjust as needed for improved control.
DVT Prophylaxis: On Eliquis
Code Status: Full
[2025-05-10 05:02] LABS: Hematocrit 36.7 % (39.0-52.0); Hemoglobin 13.2 g/dL (13.0-18.0); Mean Corp Hgb Conc. 36.0 g/dL (33.0-37.0); Mean Corpuscular Volume 86.2 fL (80.0-94.0); Platelet Count 150 10^3/uL (130-400); Red Cell Dist. Width 12.1 % (11.5-14.5)
[2025-05-10] MEDS: NSS 1000 IV (05:21)
[2025-05-10 05:24] LABS: Blood Urea Nitrogen 19 mg/dl (9-20); Calcium 9.3 mg/dl (8.4-10.2); Carbon Dioxide 27 mmol/L (22-30); Chloride 105 mmol/L (98-107); Estimated Creatinine Clearance > 125 ml/min; Glucose 108 mg/dl (70-99); HDL Cholesterol 36 mg/dl; LDL Cholesterol, Calculated 140 mg/dl; Potassium 4.1 mmol/L (3.5-5.1); Sodium 139 mmol/L (135-145); Very Low Density Lipoprotein 35 mg/dl (0-30); eGFR > 60.00
[2025-05-10 05:34] LABS: Troponin I < 0.012 ng/ml
--- NOTE | 2025-05-10 05:47 | PTCARENOTE ---
Received pt from ED via stretcher into room 2248. Pt ambulated self to bed w/out difficulty. Denies any SOB. Tele monitor applied pt SB/SR, HR in the 50-60's at rest,
--- NOTE | 2025-05-10 05:49 | PTCARENOTE ---
Received pt from ED via stretcher into room 2249. Pt ambulated self to bed w/out difficulty. Denies any SOB. Tele monitor applied pt SB/SR, HR in the 50-60's at rest. Pt c/o left sided chest discomfort. Rating it 6/10. Described as 'constant' w/
occasional tightness, and hurts when breathing in & out. Pt sating 98% RA, and lungs clear throughout. This RN offered pt multiple times if he wanted to receive any pain medications. Pt declined, and was educated to call for assistance if pts
symptoms worsen. Pt oriented to room. Aware of POC, and educated about NPO status. Call vasquez within reach.
--- NOTE | 2025-05-10 08:43 | CON.CAR ---
Addendum entered and electronically signed by Hari Cardoza MD 05/10/25 10:30:
I saw and evaluated the patient. I reviewed the resident�s note and agree with findings and plan as documented in the resident�s note.
44-year-old gentleman who follows with Dr. Barbosa for cardiology given a history of paroxysmal atrial fibrillation with an odd approach to anticoagulation taking Eliquis as needed for episodes of atrial fibrillation and and hypertension who presented
for evaluation of chest pain. Initial episode was on Thursday when he felt like you had gone into atrial fibrillation. He went home and took his metoprolol and this resolved. However this feeling of chest pain recurred in the setting of fluttering
which felt different than his atrial fibrillation however resolved after he felt a sudden pause in his heart rate. At this time the pain felt sharp and radiated to the axilla. Of note, he has had multiple visits to emergency room as well as at the
outside hospital in [place] for chest pain. He reports she has never had a stress test. He drinks wine more often than not. He denies smoking. He works running a car dealership. He is not consistently active. He does not check his blood
pressures at home. Recently had hydrochlorothiazide added to his medication regimen for lower extremity swelling. His lives is at the bedside and adds to the history.
Currently he is feeling improved. On exam he has a regular rate and rhythm with normal S1-S2 no murmurs gallops were appreciated. Abdomen was soft nontender nondistended bipedal splenomegaly lungs were clear to auscultation bilaterally. He had
equal pulses bilaterally. Blood pressure was 167 in the right arm and 149 in the left arm.
EKG tracings were reviewed and showedNormal sinus rhythm with intra-atrial conduction delay. Nonspecific ST changes. No significant no significant change from prior.
CT PE on admission was normal. Echocardiogram was completed this morning and I reviewed the images and it showed normal function with LVH. No significant valve abnormalities. Troponin negative.
Overall, symptoms may be due to poorly treated high blood pressure and a hypertensive urgency, arrhythmia given his history of paroxysmal atrial fibrillation, noncardiac causes. However given multiple hospitalizations and ED visits, recommend
further evaluation with a stress echocardiogram. Additionally, we will pursue a carotid ultrasound given his blood pressures are unequal on his arms. This may be leading to undertreatment of his overall levels. Blood pressure should be checked in
his right arm. He has had some lower extremity edema with nifedipine, will use this today so that his blood pressure is controlled for stress testing, however as an outpatient would consider transitioning to MOJGAN inhibitor to avoid this side effect.
Currently there is no evidence of atrial fibrillation and he does not take Eliquis on a standing basis will stop. His CHADS2 Vasc score is a 1. We discussed the importance of avoiding alcohol given his history of paroxysmal atrial fibrillation
and hypertension. He needs to increase his activity level to include consistent aerobic and anaerobic exercise.
If stress test is normal, would discharge home to follow-up with his primary administrative resources associate.
Original Note:
Consultation
Consultation Request
Date/Time Consultation Requested: 05/10/2025
Date/Time Consultation Performed: 05/10/2025
Medical History
-
Chief Complaint: Left-sided chest pain
History of Present Illness:
Patient is a 44-year-old male, with past medical history significant for paroxysmal atrial fibrillation, and hypertension who presented to the ER with complaint of sudden onset intermittent left-sided chest pain for last 24 hours. He states that he
was in his work meeting on Thursday, when he felt a sharp pain on left side of his chest and fluttering of his chest, he sensed that he was having an episode of atrial fibrillation so he went home and took metoprolol 25 mg stat. After that, he felt a
little bit better but then the next day he felt fluttering in his chest, along with sharp pain and it felt like his heart stopped for a second and then kick started back again that scared him and that is why he came to the ER. He describes the pain
as sharp,ripping and intermittent,currently 4/10 in intensity. He denies any nausea, vomiting, diaphoresis associated with the pain.
He denies any intense workout/exercise before that, denies having any Holter monitor done in the past, denies any issues with mood or sleep, did not have any further workup done since his last admission to the hospital for atypical chest pain 7
months ago.Denies any history of recent travel.
On his last admission in August 2024, he was discharged on colchicine 0.6 mg for 3 months which his administrative resources associate discontinued as the patient was asymptomatic and he did not fit the criteria of pericarditis. He has had 6 admissions still now for
similar chest pains but this time he felt that the heart stopping and restarting was something new that he noticed.
Of note, he had ankle swelling a month ago for which she was started on hydrochlorothiazide and his ankle swelling has resolved.
Past Medical History
Past Medical History: Arrhythmias (Paroxysmal atrial fibrillation) and HTN
Past Surgical History: Other (Sinus surgery and adenoidectomy)
Social History
Tobacco: Non-Smoker
Alcohol: Occasional
Drug: None
Personal:
Living: With Family
Employment: Employed
Family History
Family History: Adopted (Recently found out that his mother had some heart issues,)
Allergies / Home Medications
Allergy/AdvReac Type Severity Reaction Status Date / Time
No Known Allergies Allergy Verified 05/09/25 18:51
�Medication �Instructions �Recorded �Confirmed �Type
apixaban 5 mg tablet (Eliquis) 5 mg PO PRN PRN symptoms of AFib 08/22/24 05/10/25 History
metoprolol tartrate 25 mg tablet 25 mg PO PRN PRN symptoms of AFib 08/22/24 05/10/25 History
nifedipine 30 mg tablet,extended 30 mg PO DAILY 30 days #30 tabs 08/23/24 05/10/25 Rx
release
hydrochlorothiazide 12.5 mg tablet 12.5 mg PO DAILY 05/10/25 05/10/25 History
Review of Systems
-
All other systems: Negative unless noted
Physical Exam
Vital Signs
Temp Pulse Resp BP Pulse Ox
97.9 F 60 18 133/94 97
05/10/25 08:10 05/10/25 08:10 05/10/25 08:10 05/10/25 04:26 05/10/25 08:10
Lab Results
05/10/25 04:37
05/10/25 04:37
Troponin I < 0.012 ng/ml D 05/10/25 04:37
Mbn-V-Niqvbnxearg Pept < 20.0 pg/ml 05/09/25 19:00
Physical Exam
General: Well Developed, Well Nourished, No Apparent Distress and Comfortable
HEENT: Normocephalic and Anicteric
Respiratory: Clear; Negative Wheezes, Crackles or Rhonchi
Cardiac: S1/S2, Regular Rhythm and Other (No visible lesions/scar ackerman on inspection, tender to palpate on left side); Negative Murmur or Rub
GI: Soft and Non Tender
Musculoskeletal: No Clubbing, No Cyanosis and No Edema
Skin: Warm and Dry
Neuro: Awake and AO x 3
Psych: Calm
Impression / Plan
-
Impression
Patient is a 44-year-old with past medical history significant for paroxysmal atrial fibrillation and essential hypertension admitted with atypical chest pain.
Elevated troponin
Normal sinus rhythm
Blood pressure well-controlled
Heart rate stable
Assessment/plan
Elevated troponin levels with atypical chest pain
Troponins trending down-now negative
Chest pain improved with just mild tenderness on left side of the chest
EKG shows no acute ischemic changes
CT chest negative for any pulmonary embolism or aortic dissection
Follow echocardiography-last echo 7 months ago with 55%ejection fraction,and LV concentric hypertrophy
Pedal edema could be secondary to nifedipine
Change antihypertensive regimen to MOJGAN inhibitors on outpatient basis
stress echocardiography to evaluate chest pain
carotid ultrasound
strict control of blood pressure
Holter monitoring,on outpatient basis
Paroxysmal atrial fibrillation
Patient currently asymptomatic with normal sinus rhythm on telemetry
Heart rate well-controlled
CHADVASC score-1
Patient does not qualify for anticoagulation
Hold eliquis for now
Essential hypertension
Patient experienced pedal edema secondary to nifedipine
Neck ultrasound for difference in blood pressure in both arms
strict control of blood pressure
Plan to change to MOJGAN inhibitors on discharge
[2025-05-10] MEDS: LOW STRENGTH ASPIRIN 81 MG PO (09:36)
[2025-05-10] MEDS: ORETIC 12.5 MG PO (09:54)
--- NOTE | 2025-05-10 10:15 | PTCARENOTE ---
Pt w/ BP differences in BUE. Pt c/o left ACW aching, mostly with exhalation. aware. Will monitor.
[2025-05-10] MEDS: PROCARDIA XL (EXTENDED RELEASE) 30 MG PO (10:20)
[2025-05-10 10:49] LABS: Glycohemoglobin (HgbA1c) 5.0 % (4.0-5.6)
--- NOTE | 2025-05-10 11:05 | CM ---
Chart reviewed. Patient at a stress test, at bedside. Patient is independent of ADLS, lives with his in a 2 [address], 1 MARK, 0 DME. Plan is for the patient to return home. CM to follow
--- NOTE | 2025-05-10 14:23 | W.PN.UPDATE ---
Update Note
Progress Note Update
Stress test today
Carotid ultrasound given unequal blood pressures on bilateral arms
Continue nifedipine, may need additional BP control
No evidence of atrial fibrillation although on Eliquis
statin
--- NOTE | 2025-05-10 14:28 | W.PN.HOSP.TC ---
Addendum entered and electronically signed by Rickie Johnson MD 05/11/25 15:49:
[id number]
Addendum entered and electronically signed by Rickie Johnson MD 05/10/25 14:36:
no need for asa
Original Note:
Today's Communication/Plan
-
ASA
Stop Eliquis, BB PRN and F/u With cards closely
EtOH cessation advised
Increase HCTZ to 25mg daily
F/u PCP, Cards outpatient
Assessment / Plan
Assessment / Plan
A/P: Patient is a 44y M with PMH significant for HTN and PA-Fib who presents to ED complaining of chest pain.
Atypical Chest Pain
- Stress test negative
-ECHO unremarkable
-possible anxiety related
-F/u PCp outpatient
-Advised to stop drinking EtOH
F/u cards outpatient
-can cont ASA
hx of Paroxysmal Atrial Fibrillation
- no evidence here
- F/u Cardiology at this time; has been on Eliquis and BB PRN? will dc for now and defer to outpatient cards - as per cards
- ASA
#hyperlipidemia
ASCVD risk only 4.2 - can hold on statin
-stop drinking and exercise
Benign Hypertension
- Stable. Continue current med regimen and adjust as needed for improved control.
increase HCTZ to 25mg daily
#EtOH dependence
-educated on cessation
Code Status: Full
More than 30 minutes spent in discharge including
Final examination of the patient
Summarizing hospital stay
Instructions for continuing care to all relevant caregivers
Preparation of discharge records, prescriptions, and referral forms
Total time spent (in minutes): 36
Anticipated Discharge: Today
Subjective/Interval History
-
Date of Service: May 10, 2025
stress test today
Objective Data
-
Labs:
Laboratory Results
05/10/25
04:37
WBC 4.5 L
Hgb 13.2
Hct 36.7 L
Plt Count 150
Sodium 139
Potassium 4.1
Chloride 105
Carbon Dioxide 27
BUN 19
Creatinine 0.9
Glucose 108 H
Calcium 9.3
Vital Signs:
Vital Signs
Temp Pulse Resp BP Pulse Ox
98.0 F 63 15 149/96 96
05/10/25 12:06 05/10/25 10:20 05/10/25 12:06 05/10/25 10:20 05/10/25 12:06
I&O
05/09/25 05/10/25 05/11/25
06:59 06:59 06:59
Intake Total 240 / 240
Balance 240 / 240
Review of Systems
-
History Source: Patient
All other systems: Not reviewed unless documented
Physical Exam
-
General: No Apparent Distress and Comfortable
HEENT: Normocephalic, Atraumatic, Moist Mucous Membranes, Anicteric and No Ptosis
Respiratory: Clear to Auscultation and Non Labored Respirations
Cardiac: Regular Rhythm and S1/S2
GI: Soft, Nontender, Nondistended and No Hepatosplenomegaly
Genito-urinary: No Costovertebral Tender
Musculoskeletal: No Clubbing, No Cyanosis and No Edema
Skin: Warm, Dry and IV Access / Catheter Site
Neuro: Awake, Alert, Oriented and Nonfocal/Grossly Intact
Hematologic / Lymphatic: No Lymphadenopathy
Psych: Calm and Intact Judgement/Insight
Data Reviewed
-
Diagnostic Radiology: Report Reviewed by me
Medical Tests (Nuc Med, Echo etc): Report Reviewed by me
Labs: Labs Reviewed by me
--- NOTE | 2025-05-10 14:37 | W.DS.TRANS ---
DC Summary - [employer]
-
Discharge Instructions:
Sleep Apnea Risk Intermediate
Discharge Diagnosis/Procedures Atypical chest pain
Diet Low Cholesterol,Low Fat
Blood Work CBC and BMP within 1 week with PCP
Instructions:
Stand-Alone Forms:
Changes to Home Medications: Yes
Discharge Medications:
DC Medications w/original date entered in [facility]
nifedipine 30 mg tablet,extended release 30 mg PO DAILY 30 days #30 tabs 08/23/24
hydrochlorothiazide 12.5 mg tablet 25 mg (2 x 12.5 mg) PO DAILY 30 days #60 tabs 05/10/25
Home Medication Changes
hydrochlorothiazide 12.5 mg tablet 25 mg (2 x 12.5 mg) PO DAILY 30 days #60 tabs 05/10/25
Pending Results: No
== END 2025-05-10 15:19 | disposition home or self-care (01) ==
LOC: IVU 03:26
PROVIDERS: Emergency Medicine; Physician Assistant; ADMITTING PHYSICIAN Hospitalist; ATTENDING PHYSICIAN Internal Medicine; EMERGENCY PHYSICIAN Emergency Medicine; FAMILY PHYSICIAN Family Medicine; OTHER PHYSICIAN Internal Medicine Cardiovascular Disease
DX: R07.89 Other chest pain (principal); R79.89 Other specified abnormal findings of blood chemistry; I48.0 Paroxysmal atrial fibrillation; I10 Essential (primary) hypertension; F41.9 Anxiety disorder, unspecified; E78.5 Hyperlipidemia, unspecified; F10.20 Alcohol dependence, uncomplicated; Z79.01 Long term (current) use of anticoagulants; Z79.899 Other long term (current) drug therapy
CPT/HCPCS: 71275; 80048; 80053; 80061; 83036; 83880; 84484; 85025; 85027; 93005; 93017; 93306; 93350; 93880; 99285; G0378; Q9967

== ENCOUNTER → 2025-06-23 08:38 | Outpatient (REF) | payer OTHER, SELFPAY | LOC: HWRAD 08:38 | PROVIDERS: ATTENDING PHYSICIAN Nurse Practitioner Gerontology; FAMILY PHYSICIAN Family Medicine | DX: E78.00 Pure hypercholesterolemia, unspecified (principal); Z71.89 Other specified counseling | CPT/HCPCS: 75571 ==

== ENCOUNTER 2025-07-24 19:26 | Emergency (ER) | payer OTHER, SELFPAY ==
[2025-07-24 19:30] VITALS: BP 174/114
[2025-07-24 19:53] LABS: Hematocrit 38.5 % (39.0-52.0); Hemoglobin 13.2 g/dL (13.0-18.0); Mean Corp Hgb Conc. 34.3 g/dL (33.0-37.0); Mean Corpuscular Volume 90.4 fL (80.0-94.0); Nucleated Red Blood Cells % 0 % (-); Platelet Count 136 10^3/uL (130-400); Red Cell Dist. Width 12.4 % (11.5-14.5)
[2025-07-24 20:09] LABS: ALT (SGPT) 63 U/L (0-50); AST (SGOT) 35 U/L (17-59); Albumin 4.8 g/dl (3.5-5.0); Alkaline Phosphatase 55 U/L (38-126); Blood Urea Nitrogen 18 mg/dl (9-20); Calcium 9.4 mg/dl (8.4-10.2); Carbon Dioxide 28 mmol/L (22-30); Chloride 106 mmol/L (98-107); Glucose 111 mg/dl (70-99); Lipase 165 U/L (23-300); Potassium 4.0 mmol/L (3.5-5.1); Sodium 140 mmol/L (135-145); Total Protein 7.8 g/dl (6.3-8.2); eGFR > 60.00
[2025-07-24 20:15] LABS: Troponin I < 0.012 ng/ml
[2025-07-24 20:47] VITALS: BP 166/99
[2025-07-24 21:00] VITALS: BP 143/108
--- NOTE | 2025-07-24 21:30 | ED.GENMED ---
History of Present Illness
<Myah Garrido NP - Last Filed: 07/24/25 21:40>
General
Chief Complaint: Heart Rate Problem
Time Seen by Provider: 07/24/25 21:16
History of Present Illness
History of Present Illness:
Patient to the emergency department with complaint of left-sided chest pain. Pain started this evening. Pain does not radiate. Initially reported some shortness of breath but that has resolved. States that he has had worsening cough over the
past 48 hours and he is concerned concerned that this may be related to lisinopril. He is also concerned that he may be in heart failure. No history of heart failure. Denies nausea vomiting diaphoresis. He has been here approximately 4 times in
the past 11 months with a similar complaint. This past April he had a normal stress test and echo. He states the that the pain tonight is located more medially on the left chest. He states prior chest pain has been located laterally on the left
chest and into the axilla. He does report tonight that his heart rate felt irregular and that when he coughed his heart stopped and then started at a regular rate. Currently normal sinus rhythm on monitor. EKG on arrival shows normal sinus
rhythm, no changes from prior. To ED accompanied by spouse.
Past History
<Myah Garrido REGIONAL TRAINING MANAGER - Last Filed: 07/24/25 21:40>
Past History
ED Past Medical History: Arrthythmia, HTN and Other (adopted)
ED Past Surgical History: None
Social History
Tobacco: Non-smoker
Alcohol: Occasional
Drug: None
Personal:
Living: with family
Review of Systems
<Myah Garrido REGIONAL TRAINING MANAGER - Last Filed: 07/24/25 21:40>
Review of Systems
Allergies reviewed?: Yes
All Other Systems: ROS reviewed and negative except as documented in HPI and ROS
Constitutional: Reports no symptoms
EENT: Reports no symptoms
Respiratory: Reports cough
Cardiac: Reports chest pain and palpitations
ABD/GI: Reports no symptoms
: Reports no symptoms
Musculoskeletal: Reports no symptoms
Skin: Reports no symptoms
Neurological: Reports no symptoms
Psychiatric: Reports no symptoms
Phy Exam
<Myah Garrido REGIONAL TRAINING MANAGER - Last Filed: 07/24/25 21:40>
General Physical Exam
General Presentation: well appearing and no apparent distress
General age: appears stated age
General Skin: warm and dry
General Habitus: normal
General Mental: alert
Cardiovascular Exam
Cardiovascular Exam: regular rate/rhythm and no edema
Pulmonary Exam
Pulmonary Exam: lungs clear and no respiratory distress
Musculoskeletal Exam
Musculoskeletal Exam: full ROM and neuro vasc intact
Skin Exam
Skin Exam: normal color, warm/dry and no rash
Psychiatric Exam
Psychiatric Exam: normal mood/affect
Course
<Myah Garrido, REGIONAL TRAINING MANAGER - Last Filed: 07/24/25 21:40>
Orders/Labs/Results
Orders:
Orders
07/24/25 19:28
ECG [Electrocardiogram (*1)] Urgent
Reason for Study: Palpitations
EKG- Treatment ONCE
07/24/25 19:44
BNP [NT-proBNP] Urgent
Complete Blood Count/With Diff Urgent
Comprehensive Metabolic Panel Urgent
Lipase Urgent
Troponin I Urgent
07/24/25 21:29
CR Chest - 2 Views Urgent
Comment:
Reason For Exam: cough
07/24/25 22:29
Troponin I Urgent
Abnormal Lab Results
07/24/25
19:44
WBC 4.2 L 10^3/uL
(4.8-10.8)
RBC 4.26 L 10^6/uL
(4.70-6.10)
Hct 38.5 L %
(39.0-52.0)
Absolute Lymphs (auto) 1.0 L 10^3/uL
(1.2-3.4)
Glucose 111 H mg/dl
(70-99)
ALT 63 H U/L
(0-50)
07/24/25 19:44
07/24/25 19:44
Vital Signs
Initial and Last Documented VS:
Initial Vital Signs
Temp Pulse Resp BP Pulse Ox
98.2 F 76 16 174/114 99
07/24/25 19:30 07/24/25 19:30 07/24/25 19:30 07/24/25 19:30 07/24/25 19:30
Last Documented Vital Signs
Temp Pulse Resp BP Pulse Ox
98.2 F 61 23 167/103 100
07/24/25 19:30 07/24/25 22:30 07/24/25 22:30 07/24/25 22:27 07/24/25 21:31
<Eleuterio Stokes, DO - Last Filed: 07/24/25 23:43>
Orders/Labs/Results
Orders:
Orders
07/24/25 19:28
ECG [Electrocardiogram (*1)] Urgent
Reason for Study: Palpitations
EKG- Treatment ONCE
07/24/25 19:44
BNP [NT-proBNP] Urgent
Complete Blood Count/With Diff Urgent
Comprehensive Metabolic Panel Urgent
Lipase Urgent
Troponin I Urgent
07/24/25 21:29
CR Chest - 2 Views Urgent
Comment:
Reason For Exam: cough
07/24/25 22:29
Troponin I Urgent
Abnormal Lab Results
07/24/25
19:44
WBC 4.2 L 10^3/uL
(4.8-10.8)
RBC 4.26 L 10^6/uL
(4.70-6.10)
Hct 38.5 L %
(39.0-52.0)
Absolute Lymphs (auto) 1.0 L 10^3/uL
(1.2-3.4)
Glucose 111 H mg/dl
(70-99)
ALT 63 H U/L
(0-50)
07/24/25 19:44
07/24/25 19:44
Vital Signs
Initial and Last Documented VS:
Initial Vital Signs
Temp Pulse Resp BP Pulse Ox
98.2 F 76 16 174/114 99
07/24/25 19:30 07/24/25 19:30 07/24/25 19:30 07/24/25 19:30 07/24/25 19:30
Last Documented Vital Signs
Temp Pulse Resp BP Pulse Ox
98.2 F 61 23 167/103 100
07/24/25 19:30 07/24/25 22:30 07/24/25 22:30 07/24/25 22:27 07/24/25 21:31
<Myah Garrido NP - Last Filed: 07/24/25 21:40>
*Pulse Oximetry
SaO2: 100
Oxygen Mode of Delivery: Room air
ED Attending Note
<Myah Garrido REGIONAL TRAINING MANAGER - Last Filed: 07/24/25 21:40>
-
Portions of this chart may have been created with voice recognition software.� Occasional wrong word or��sound alike� substitutions may have occurred due to the inherent limitations of voice recognition software.
<Eleuterio Stokes DO - Last Filed: 07/24/25 23:43>
ED Attending Note
Patient seen and examined by attending physician: Yes
I performed the substantive portion of visit, reviewed & personally made and approve the management plan that is documented in note by myself or ADAM.: Yes
ED Attending Note:
I have seen and evaluated the patient with a [id number] encounter. I have spoken to the advance practicer provider and involved in the medical history, the physical exam, medical decision making.
Evaluation and management service: agree unless noted differently below.
Results interpretation: agree unless noted differently below.
Focused HPI: 44-year-old male presenting with sudden onset of chest pain that occurred earlier in the evening. Of note, patient has been to the emergency department several times in the past several months. He has complained of chest pain and even
has been admitted with a negative workup. Patient has follow-up appointment with cardiology next week. Symptoms are nonexertional
Physical exam: Sitting in bed comfortably. No acute distress. No murmur noted. No leg pitting edema
Medical Decision Making: Will obtain a 2 troponin rule out but discussed the importance of follow-up with cardiology. I did evaluate his recent CT calcium score which puts him in the lower risk category. However, there is some plaque noted. We
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
Discharge Plan
Departure
Patient Disposition: Home (Routine Discharge)
Date of Disposition: 07/24/25
Time of Disposition: 23:42
Patient with high blood pressure during this ER visit?: Yes
Discharge Problem:
Chest pain
Instructions: Chest pain (DC), BLOOD PRESSURE
Prescriptions:
No Action
nifedipine 30 mg tablet extended release
30 mg PO DAILY 30 Days Qty: 30 0RF
hydrochlorothiazide 12.5 mg Tablet
25 mg PO DAILY 30 Days Qty: 60 0RF
Referrals:
Nathaniel Eid MD [Family Provider, Family Practice]
Activity Restrictions/Additional Instructions:
Please return for any worsening symptoms.
You may return at any time if you have further concerns.
Please follow up with your doctor at the first available appointment, preferably this week.
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 Please discuss your calcium CT. Please discuss your symptoms and whether or not is warranted obtaining a catheterization and possibly a Holter monitor.
Thank you for choosing [facility].
Interventions
Interventions:
*Risk Screen - Suicide Last Done: 07/24/25 19:30
*General Assessment Last Done: 07/24/25 19:30
*Neglect/Abuse Screening Last Done: 07/24/25 19:30
*ED- Fall Risk Assessment Last Done: 07/24/25 22:04
*ED COVID-19 Vaccine History Last Done: 07/24/25 22:04
*ED Influenza Vaccine History Last Done: 07/24/25 22:04
ED- Cardiac Assessment Last Done: 07/24/25 21:04
ED- Pulmonary Assessment Last Done: 07/24/25 21:04
Discharge Date and Time
Print Language: TONGAN
[2025-07-24 22:18] VITALS: BP 161/108
[2025-07-24 22:27] VITALS: BP 167/103
[2025-07-24 23:01] VITALS: BMI 24.7
[2025-07-24 23:17] LABS: Troponin I < 0.012 ng/ml
== END 2025-07-24 23:53 | disposition home or self-care (01) ==
LOC: EMR 19:26
PROVIDERS: Emergency Medicine; Nurse Practitioner; EMERGENCY PHYSICIAN Student in an Organized Health Care Education/Training Program; FAMILY PHYSICIAN Family Medicine
DX: R07.9 Chest pain, unspecified (principal); I10 Essential (primary) hypertension
CPT/HCPCS: 99284; 71046; 80053; 83690; 83880; 84484; 85025; 93005